=== PATIENT | male | born 1945 | race Two or more races ===

== ENCOUNTER 2017-10-08 10:52 | Inpatient (IN) | payer MEDICAID ==
[~2017-10-08] VITALS: Ht 157.5 cm; Wt 76.5 kg
[~2017-10-08 10:52] MED LIST: ASPI-231 PO; ATO40T PO; CALC667C PO; FURO80TA3 PO; GABA100C9 PO; SEVE800T8 PO; TRAZ50TA2 PO; VALS1TAB58 PO
[2017-10-08 12:24] LABS: Basophils # (auto) 0 uL; Eosinophils # (auto) 0 uL; Hemoglobin 13.6 g/dL (13.5-17.5); Monocytes # (auto) 0.3 uL; Nucleated Red Blood Cells % 0.2 %
[2017-10-08 12:26] LABS: Basophils % (auto) 0.7 % (0.0-2.0); Eosinophils % (auto) 0.5 % (0.0-7.0); Hematocrit 39.7 % (41.0-53.0); Lymphocytes # (auto) 0.2 uL; Lymphocytes % (auto) 5.7 % (10.0-50.0); Mean Corpuscular Hemoglobin 34.5 pg (28.0-32.0); Mean Corpuscular Hgb Conc. 34.3 g/dL (32.0-36.0); Mean Corpuscular Volume 100.7 fL (80.0-100.0); Monocytes % (auto) 9.5 % (0.0-12.0); Neutrophils # (auto) 2.8 uL; Neutrophils % (auto) 83.6 % (37.0-80.0); Platelet Count (auto) 131 10^3/uL (140-450); Red Blood Cells 3.94 10^6/uL (4.5-5.90); Red Cell Distribution Width 13.8 % (11.8-14.3); White Blood Cell 3.3 10^3/uL (4.4-10.8)
[2017-10-08 12:40] LABS: Albumin 3.7 g/dL (3.4-5.0); BUN/Creatinine Ratio 4.7; Bilirubin, Total 1.2 mg/dL (0.2-1.0); Calcium 8.7 mg/dL (8.5-10.1); Magnesium 2.4 mg/dL (1.6-2.6); Potassium 4.2 mmol/L (3.5-5.1); Total Protein 8.3 g/dL (6.4-8.2)
[2017-10-08] MEDS ORDERED: ACETAMINOPHEN 325 MG TAB PO ONE (13:05)
[2017-10-08] MEDS ORDERED: DEXTROSE (50%) 50ML SYRG IV PRN (14:00)
[2017-10-08] MEDS ORDERED: NITROGLYCERIN 0.4 MG SL TAB SL PRN (14:00)
[2017-10-08] MEDS ORDERED: VANCOMYCIN 500 MG in D5W 5% 100 ML IV ONE (14:00)
[2017-10-08] MEDS ORDERED: LORazepam 0.5 MG TAB PO PRN (14:00)
[2017-10-08] MEDS ORDERED: MORPHINE SULF INJ 2 MG/ML SYRINGE 1ML IV PRN ×2 (14:00→14:15)
[2017-10-08] MEDS ORDERED: HYDROcodone-ACET 5/325MG TAB PO PRN (14:00)
[2017-10-08] MEDS ORDERED: PIPERACILLIN-TAZOB 2.25GM 50 ML IV ONE (14:00)
[2017-10-08] MEDS ORDERED: PROMETHAZINE HCL 25 MG/ML 1ML IV PRN (14:00)
[2017-10-08] MEDS ORDERED: TEMAZEPAM 15 MG CAP PO PRN (14:00)
[2017-10-08] MEDS ORDERED: ENALAPRILAT 1.25 MG/ML-1ML VIAL IV PRN (14:00)
[2017-10-08] MEDS ORDERED: ACETAMINOPHEN 500 MG TAB PO PRN (14:00)
[2017-10-08] MEDS ORDERED: LACTULOSE 20Gm/30ML SOLN PO PRN (14:00)
[2017-10-08] MEDS ORDERED: PATIENTS OWN MEDICATION (Sevelamer Carbonate (Renvela) 1 TAB) PO SCH (14:00)
[2017-10-08] MEDS ORDERED: VANCOMYCIN PER PHARMACY 0 MG IV SCH (14:00)
[2017-10-08] MEDS: FAMOTIDINE (10MG/ML) 2ML VL IV SCH (15:05)
[2017-10-08] MEDS: ENOXAPARIN SOD 30 MG/0.3 ML SYRINGE SC SCH (15:06)
[2017-10-08] MEDS: SODIUM CHLOR 0.9% PF (SALINE LOCK) 10ML VIAL IV SCH ×2 (15:06→22:20)
[2017-10-08] MEDS: GABAPENTIN 100 MG CAP PO SCH ×2 (15:06→21:20)
[2017-10-08] MEDS ORDERED: VANCOMYCIN 1GM/250ML 250 ML IV ONE (15:30)
[2017-10-08 16:00] VITALS: BP 147/74
[2017-10-08 17:00] VITALS: BP 147/74
[2017-10-08] MEDS: InsuLIN REG 1unit/0.01ml Soln (100units/ml) SC SCH ×2 (17:00→22:00)
[2017-10-08] MEDS: ACCU-CHEK COMFORT CURVE STRIP VI SCH ×2 (17:16→22:20)
[2017-10-08] MEDS ORDERED: CLOP75TA41 PO (17:53)
[2017-10-08] MEDS ORDERED: NIFE30TA76 PO (17:53)
[2017-10-08] MEDS ORDERED: DIPH25CA6 PO (17:53)
[2017-10-08] MEDS ORDERED: POM (17:53)
[2017-10-08] MEDS ORDERED: AMIO200T33 PO (17:53)
[2017-10-08] MEDS ORDERED: CARV12.544 PO (17:53)
[2017-10-08] MEDS ORDERED: CETI10TA80 PO (17:53)
[2017-10-08] MEDS ORDERED: SEVE800T8 PO (17:58)
[2017-10-08] MEDS ORDERED: DOCU100T15 PO (17:58)
[2017-10-08] MEDS ORDERED: PANT40TA2 PO (17:58)
[2017-10-08] MEDS ORDERED: TRAZ50TA2 PO (17:58)
[2017-10-08] MEDS ORDERED: FURO40TA4 PO (17:58)
[2017-10-08] MEDS ORDERED: EPIN0.3I24 IJ (17:58)
[2017-10-08] MEDS ORDERED: HYDR10TA26 PO (17:58)
[2017-10-08] MEDS ORDERED: FAMO-12 PO (17:58)
[2017-10-08] MEDS ORDERED: PATIENTS OWN MEDICATION (Atorvastatin Calcium (Lipitor) 1 TAB) PO SCH (18:00)
[2017-10-08] MEDS ORDERED: ACET-1304 PO (18:00)
[2017-10-08] MEDS ORDERED: ISOS10TA2 PO (18:00)
[2017-10-08] MEDS: SEVELAMER 800 MG TAB PO SCH (18:12)
[2017-10-08] MEDS: CALCIUM ACETATE 667 MG CAP PO SCH (18:12)
[2017-10-08] MEDS: ATORVASTATIN 20 MG TAB PO SCH (21:19)
[2017-10-08] MEDS: traZODone HCL 50 MG TAB PO SCH (21:19)
[2017-10-08 22:23] VITALS: BP 146/66
[2017-10-09] MEDS: PIPERACILLIN-TAZOB 2.25GM 50 ML IV SCH ×2 (02:00→13:51)
[2017-10-09] MEDS: FAMOTIDINE (10MG/ML) 2ML VL IV SCH ×2 (02:35→13:51)
[2017-10-09 04:35] VITALS: BP 150/67
[2017-10-09 05:53] LABS: Hemoglobin 12.6 g/dL (13.5-17.5); Mean Corpuscular Volume 102.4 fL (80.0-100.0); Platelet Count (auto) 95 10^3/uL (140-450); White Blood Cell 2.2 10^3/uL (4.4-10.8)
[2017-10-09 05:55] LABS: Hematocrit 37.5 % (41.0-53.0); Mean Corpuscular Hemoglobin 34.4 pg (28.0-32.0); Mean Corpuscular Hgb Conc. 33.6 g/dL (32.0-36.0); Red Blood Cells 3.66 10^6/uL (4.5-5.90); Red Cell Distribution Width 14.6 % (11.8-14.3)
[2017-10-09 05:56] LABS: Band Neutrophils % (manual) 0; Basophils % (manual) 0 (0.0-2.0); Blast Cells 0; Eosinophils % (manual) 0 (0-7); Metamyelocytes % 0; Myelocytes % 0; Promyelocytes % 0; Reactive Lymphocytes 0
[2017-10-09] MEDS: ACCU-CHEK COMFORT CURVE STRIP VI SCH ×4 (06:13→21:25)
[2017-10-09] MEDS: InsuLIN REG 1unit/0.01ml Soln (100units/ml) SC SCH ×4 (06:13→21:25)
[2017-10-09] MEDS: GABAPENTIN 100 MG CAP PO SCH ×3 (06:13→21:25)
[2017-10-09] MEDS: SODIUM CHLOR 0.9% PF (SALINE LOCK) 10ML VIAL IV SCH ×3 (06:13→21:24)
[2017-10-09 06:56] LABS: Potassium 4.6 mmol/L (3.5-5.1)
[2017-10-09 06:57] LABS: BUN/Creatinine Ratio 5.6
[2017-10-09 06:58] LABS: Albumin 3.1 g/dL (3.4-5.0); Bilirubin, Total 1.1 mg/dL (0.2-1.0); Calcium 8.8 mg/dL (8.5-10.1); Total Protein 7.1 g/dL (6.4-8.2)
[2017-10-09 07:30] LABS: Lymphocytes % (manual) 19 (10.0-50.0); Monocytes % (manual) 17 (0-12)
[2017-10-09] MEDS: SEVELAMER 800 MG TAB PO SCH ×3 (08:24→17:43)
[2017-10-09] MEDS: CALCIUM ACETATE 667 MG CAP PO SCH ×3 (08:24→17:43)
[2017-10-09 08:46] VITALS: BP 141/81
[2017-10-09] MEDS: ASPirin-EC 81 mg tab PO SCH ×2 (09:57→09:59)
[2017-10-09] MEDS: ENOXAPARIN SOD 30 MG/0.3 ML SYRINGE SC SCH (09:57)
[2017-10-09] MEDS ORDERED: ASPirin 81 mg TAB PO SCH (10:00)
[2017-10-09] MEDS ORDERED: VANCOMYCIN 1GM/250ML 250 ML IV ONE (11:00)
[2017-10-09 12:51] VITALS: BP 185/94
[2017-10-09] MEDS: LABETALOL HCL 5 MG/ML ML 20ML VIAL IV PRN ×2 (12:54→17:43)
[2017-10-09 17:00] VITALS: BP 162/81
[2017-10-09] MEDS: traZODone HCL 50 MG TAB PO SCH (21:25)
[2017-10-09] MEDS: ATORVASTATIN 20 MG TAB PO SCH (21:25)
[2017-10-09 22:00] VITALS: BP 121/57
[2017-10-10] MEDS: FAMOTIDINE (10MG/ML) 2ML VL IV SCH ×2 (01:57→15:23)
[2017-10-10] MEDS: PIPERACILLIN-TAZOB 2.25GM 50 ML IV SCH ×2 (01:57→15:22)
[2017-10-10 05:34] VITALS: BP 113/47
[2017-10-10] MEDS: GABAPENTIN 100 MG CAP PO SCH ×3 (06:42→22:13)
[2017-10-10] MEDS: SODIUM CHLOR 0.9% PF (SALINE LOCK) 10ML VIAL IV SCH ×3 (06:42→22:13)
[2017-10-10] MEDS: InsuLIN REG 1unit/0.01ml Soln (100units/ml) SC SCH ×4 (06:43→22:00)
[2017-10-10] MEDS: ACCU-CHEK COMFORT CURVE STRIP VI SCH ×4 (06:43→22:14)
[2017-10-10 08:00] VITALS: BP 114/75
[2017-10-10 08:17] LABS: Hematocrit 35.7 % (41.0-53.0); Hemoglobin 11.9 g/dL (13.5-17.5); Mean Corpuscular Hemoglobin 33.7 pg (28.0-32.0); Mean Corpuscular Hgb Conc. 33.2 g/dL (32.0-36.0); Mean Corpuscular Volume 101.5 fL (80.0-100.0); Platelet Count (auto) 99 10^3/uL (140-450); Red Blood Cells 3.52 10^6/uL (4.5-5.90); Red Cell Distribution Width 14.4 % (11.8-14.3); White Blood Cell 2.7 10^3/uL (4.4-10.8)
[2017-10-10 08:21] LABS: BUN/Creatinine Ratio 6.6; Calcium 8.6 mg/dL (8.5-10.1); Potassium 4.6 mmol/L (3.5-5.1)
[2017-10-10 08:32] LABS: Band Neutrophils % (manual) 0; Basophils % (manual) 0 (0.0-2.0); Blast Cells 0; Metamyelocytes % 0; Myelocytes % 0; Promyelocytes % 0; Reactive Lymphocytes 0
[2017-10-10 08:47] LABS: Eosinophils % (manual) 1 (0-7); Lymphocytes % (manual) 37 (10.0-50.0); Monocytes % (manual) 5 (0-12)
[2017-10-10] MEDS: CALCIUM ACETATE 667 MG CAP PO SCH ×3 (08:50→17:57)
[2017-10-10] MEDS: SEVELAMER 800 MG TAB PO SCH ×3 (08:50→17:57)
[2017-10-10] MEDS: ENOXAPARIN SOD 30 MG/0.3 ML SYRINGE SC SCH (08:51)
[2017-10-10] MEDS: ASPirin-EC 81 mg tab PO SCH (08:51)
[2017-10-10 09:00] VITALS: BP 114/75
[2017-10-10 10:58] LABS: Folate (Folic Acid) 14.11 ng/mL (5.38-24)
[2017-10-10 15:28] VITALS: BP 132/67
[2017-10-10] MEDS: MICAFUNGIN SODIUM 100 MG in SODIUM CHL 0.9% 100 ML IV SCH (17:13)
[2017-10-10 17:51] VITALS: BP 160/62
[2017-10-10] MEDS ORDERED: LORazepam 2MG/ML-1ML VIAL IV PRN (21:00)
[2017-10-10 22:00] VITALS: BP 132/54
[2017-10-10] MEDS: traZODone HCL 50 MG TAB PO SCH (22:13)
[2017-10-10] MEDS: ATORVASTATIN 20 MG TAB PO SCH (22:13)
[2017-10-11] MEDS: FAMOTIDINE (10MG/ML) 2ML VL IV SCH ×2 (02:21→14:28)
[2017-10-11] MEDS: PIPERACILLIN-TAZOB 2.25GM 50 ML IV SCH ×2 (02:22→14:28)
[2017-10-11 05:00] VITALS: BP 105/47
[2017-10-11] MEDS: GABAPENTIN 100 MG CAP PO SCH ×2 (05:59→14:29)
[2017-10-11] MEDS: SODIUM CHLOR 0.9% PF (SALINE LOCK) 10ML VIAL IV SCH ×2 (05:59→14:28)
[2017-10-11] MEDS: ACCU-CHEK COMFORT CURVE STRIP VI SCH ×3 (06:20→17:50)
[2017-10-11] MEDS: InsuLIN REG 1unit/0.01ml Soln (100units/ml) SC SCH ×3 (06:20→17:51)
[2017-10-11 07:00] LABS: Hematocrit 34.5 % (41.0-53.0); Hemoglobin 11.6 g/dL (13.5-17.5); Mean Corpuscular Volume 101.6 fL (80.0-100.0)
[2017-10-11 07:02] LABS: Mean Corpuscular Hemoglobin 34.3 pg (28.0-32.0); Mean Corpuscular Hgb Conc. 33.7 g/dL (32.0-36.0); Platelet Count (auto) 89 10^3/uL (140-450); Red Cell Distribution Width 14.2 % (11.8-14.3); White Blood Cell 2.6 10^3/uL (4.4-10.8)
[2017-10-11 07:19] LABS: Band Neutrophils % (manual) 0; Basophils % (manual) 0 (0.0-2.0); Blast Cells 0; Metamyelocytes % 0; Myelocytes % 0; Promyelocytes % 0; Reactive Lymphocytes 0
[2017-10-11 07:22] LABS: BUN/Creatinine Ratio 7.5; Calcium 8.5 mg/dL (8.5-10.1); Potassium 4.9 mmol/L (3.5-5.1)
[2017-10-11] MEDS: SEVELAMER 800 MG TAB PO SCH ×3 (08:55→18:45)
[2017-10-11] MEDS: CALCIUM ACETATE 667 MG CAP PO SCH ×3 (08:55→18:45)
[2017-10-11] MEDS: ENOXAPARIN SOD 30 MG/0.3 ML SYRINGE SC SCH (08:55)
[2017-10-11] MEDS: ASPirin-EC 81 mg tab PO SCH (08:55)
[2017-10-11 09:18] VITALS: BP 127/77
[2017-10-11 11:43] VITALS: BP 141/73
[2017-10-11] MEDS ORDERED: SODIUM CHL 0.9% 1000 ML BAG XX ONE (12:00)
[2017-10-11 13:36] VITALS: BP 104/52
[2017-10-11 15:38] LABS: Eosinophils % (manual) 6 (0-7); Lymphocytes % (manual) 25 (10.0-50.0); Monocytes % (manual) 13 (0-12)
[2017-10-11] MEDS: MICAFUNGIN SODIUM 100 MG in SODIUM CHL 0.9% 100 ML IV SCH ×2 (16:53→17:00)
[2017-10-11 17:53] VITALS: BP 167/64
== END 2017-10-11 19:58 | disposition home or self-care (01) | DRG 720 ==
LOC: EDBD 10:52 → ER 10:52 → TELE 10:53 → TELE-EAST 15:49
PROVIDERS: ADMIT Internal Medicine; ATTEND Internal Medicine
PROC: 5A1D70Z Performance of Urinary Filtration, Intermittent, Less than 6 Hours Per Day (ICD-10-PCS; principal; 2017-10-11)
DX: A41.9 Sepsis, unspecified organism (principal); G93.41 Metabolic encephalopathy; I13.2 Hypertensive heart and chronic kidney disease with heart failure and with stage 5 chronic kidney disease, or end stage renal disease; I95.9 Hypotension, unspecified; N18.6 End stage renal disease; E11.22 Type 2 diabetes mellitus with diabetic chronic kidney disease; D69.6 Thrombocytopenia, unspecified; I50.9 Heart failure, unspecified; E66.01 Morbid (severe) obesity due to excess calories; D64.9 Anemia, unspecified; Z99.2 Dependence on renal dialysis; E11.319 Type 2 diabetes mellitus with unspecified diabetic retinopathy without macular edema; E78.5 Hyperlipidemia, unspecified; F32.9 Major depressive disorder, single episode, unspecified; G47.10 Hypersomnia, unspecified; G47.30 Sleep apnea, unspecified; H40.9 Unspecified glaucoma; H54.8 Legal blindness, as defined in USA; I25.10 Atherosclerotic heart disease of native coronary artery without angina pectoris; I25.2 Old myocardial infarction; Z79.82 Long term (current) use of aspirin; Z79.899 Other long term (current) drug therapy; Z82.49 Family history of ischemic heart disease and other diseases of the circulatory system; Z83.3 Family history of diabetes mellitus; Z68.30 Body mass index [BMI] 30.0-30.9, adult
CPT/HCPCS: 36415; 70551; 71045; 80048; 80053; 80061; 80202; 82550; 82607; 82746; 82962; 83036; 83605; 83735; 84443; 84484; 85007; 85025; 85027; 85652; 87040; 90935; 93005; 93306; 93886; 94660; 96374; 97163; J1642; J1815; J2248; J2543; J3490

== ENCOUNTER 2020-02-14 08:58 | Inpatient (IN) | payer MEDICAID ==
[2020-02-14] VITALS (40 sets, daily range): BP systolic 104–197; BP diastolic 44–92
[~2020-02-14] VITALS: Ht 157.5 cm; Wt 87.3 kg
[~2020-02-14 08:58] MED LIST changes: +ACET-1304 PO; +AMIO200T33 PO; -ASPI-231 PO; +CARV12.544 PO; +CETI10TA80 PO; +CLOP75TA41 PO; +DIPH25CA6 PO; +DOCU100T15 PO; +EPIN0.3I24 IJ; +EPINEPHrine HCL 1 MG/10 ML SYRG IV ONE; +FAMO-12 PO; +FURO40TA4 PO; -FURO80TA3 PO; +HYDR10TA26 PO; +ISOS10TA2 PO; +LIDOCAINE HCL 100 MG/5ML (2%) SYRG INJ IV ONE; +NIFE1TAB31 PO; +PANT40TA2 PO; +POM; +SODIUM BICARBONATE 8.4% INJ 50ML SYRINGE IV ONE; -VALS1TAB58 PO
--- NOTE | 2020-02-14 09:00 | NUR ---
Respiratory note: PT ARRIVED BY EMS WITH ROSC AND INTUBATED WITH SIZE 7.0 ETT SECURED AT 27 CM AT THE LIP. ETT CUFF WAS DEFLATED AND ETT WAS PULLED BACK TO 23 CM AT THE LIP, ETT CUFF WAS THEN INFLATED. ETT WAS THEN SECURED WITH RUKHSANA AT 23 CM AT THE LIP. END CAPNOGRAPHY HAD POSITIVE COLOR CHANGE. EQUAL CHEST RISE AND FALL. BREATH SOUNDS WERE HEARD THROUGH OUT ALL LUNG PINEDA, NOTHING WAS HEARD OVER THE STOMACH. CHEST XRAY WAS THEN ORDERED AND OBTAINED WITH ETT AT APPROPRIATE POSITION.
[2020-02-14] MEDS ORDERED: MIDAZOLAM DRIP 50 mg/50mL 50 ML IV ONE (09:17)
[2020-02-14] MEDS: MIDAZOLAM DRIP 50 mg/50mL 50 ML IV SCH ×4 (09:25→14:20)
[2020-02-14 09:39] LABS: Basophils # (auto) 0 10 ^3/uL (0-0.2); Basophils % (auto) 0.5 % (0.0-2.0); Hemoglobin 12.1 g/dL (13.5-17.5); Monocytes # (auto) 0.3 10 ^3/uL (0-1.3); Neutrophils % (auto) 64.1 % (37.0-80.0); Nucleated Red Blood Cells % 0.2 %
[2020-02-14 09:42] LABS: Eosinophils # (auto) 0.1 10 ^3/uL (0-0.8); Eosinophils % (auto) 1.2 % (0.0-7.0); Hematocrit 36.9 % (41.0-53.0); Lymphocytes # (auto) 1.6 10 ^3/uL (0.4-5.4); Lymphocytes % (auto) 28.2 % (10.0-50.0); Mean Corpuscular Hemoglobin 34.8 pg (28.0-32.0); Mean Corpuscular Hgb Conc. 32.7 g/dL (32.0-36.0); Mean Corpuscular Volume 106.4 fL (80.0-100.0); Neutrophils # (auto) 3.7 10 ^3/uL (1.6-8.6); Platelet Count (auto) 82 10^3/uL (140-450); Red Blood Cells 3.47 10^6/uL (4.5-5.90); White Blood Cell 5.7 10^3/uL (4.4-10.8)
[2020-02-14] MEDS ORDERED: NOREPINEPHRINE 8 MG/250ML KIT 250 ML IV ONE (09:45)
[2020-02-14] MEDS ORDERED: AMIODARONE 450mg/250ml AE 250 ML IV ONE (09:49)
[2020-02-14 09:55] LABS: INR 1.19 (0.9-1.15); Partial Thromboplastin Time 29.8 sec (23.64-32.05)
--- NOTE | 2020-02-14 09:56 | NUR ---
RT Transport Note: Patient transported to CT with RNE. PONCE. Patient transported to and from procedure on ventilator with previous ordered settings. Patient on satellite project site monitor with alarms set and audible, ambu-bag/mask connected to 02 tank. Patient returned to room with no adverse reaction noted. Transport completed without incident.
[2020-02-14 10:00] LABS: Albumin 2.5 g/dL (3.4-5.0); Calcium 8.1 mg/dL (8.5-10.1)
[2020-02-14 10:08] LABS: BUN/Creatinine Ratio 5.6; Bilirubin, Total 0.9 mg/dL (0.2-1.0)
[2020-02-14] MEDS: NOREPINEPHRINE 8 MG/250ML KIT 250 ML IV SCH (10:12)
[2020-02-14] MEDS ORDERED: AMIODARONE 450mg/250ml AE 250 ML IV SCH (10:22)
[2020-02-14 10:35] LABS: Lactic Acid w/Reflex 5.3 mmol/L (0.4-2.0)
[2020-02-14] MEDS ORDERED: DOPamine 1600MCG/ML D5W 250 ML IV ONE (10:38)
[2020-02-14] MEDS ORDERED: SODIUM BICARBONATE 8.4% INJ 50ML SYRINGE ONE (10:43)
[2020-02-14] MEDS ORDERED: PIPERACILLIN-TAZOB 3.375GM 100 ML IV ONE (10:45)
[2020-02-14] MEDS ORDERED: SODIUM BICARB IV ONE ×2 (10:45)
[2020-02-14] MEDS ORDERED: [UNRECOGNIZED DRUG - OTHER] IV ONE ×2 (10:45)
[2020-02-14] MEDS ORDERED: HEPARIN SODIUM (PORCINE) 5000 UNITS/ML 1ML VIAL IV ONE (11:30)
[2020-02-14] MEDS ORDERED: NITROGLYCERIN 0.4 MG SL TAB SL PRN (12:00)
--- NOTE | 2020-02-14 12:40 | NUR ---
RT Transport Note: Patient transported to ICU 109 with WILBERTO PONCE. Patient transported to and from procedure on ventilator with previous ordered settings. Patient on athletic monitor with alarms set and audible, ambu-bag/mask connected to 02 tank. Patient returned to room with no adverse reaction noted. Transport completed without incident.
--- NOTE | 2020-02-14 13:56 | NUR ---
TANK SETTER HELPER UPDATED NEW ORDERS IN PLACE.
--- NOTE | 2020-02-14 14:10 | NUR ---
Respiratory note: NEW VENT ORDERS AC 500 VT, 14 RR, PEEP 8, 100% FIO2. SETTINGS CHANGED ON VENT. ABG IN 1 HOUR.
[2020-02-14] MEDS ORDERED: POTASSIUM CHL 20MEQ/100ML 100 ML IV ONE ×2 (15:00→15:45)
[2020-02-14 15:23] LABS: Albumin 2.5 g/dL (3.4-5.0); Bilirubin, Direct 0.5 mg/dL (0-0.2); Calcium 8.1 mg/dL (8.5-10.1); Magnesium 1.9 mg/dL (1.6-2.6)
[2020-02-14 15:26] LABS: Bilirubin, Total 1.6 mg/dL (0.2-1.0); Phosphorus 2.1 mg/dL (2.5-4.90); Total Protein 6.2 g/dL (6.4-8.2)
--- NOTE | 2020-02-14 15:35 | NUR ---
RN IMCU DR. KIMBALL UPDATED ON PATIENTS STATUS. NEW ORDERS IN PLACE FOR TOTAL OF 40MEQ OF KCL IVP
[2020-02-14] MEDS: PIPERACILLIN-TAZOB 2.25GM 50 ML IV SCH ×3 (15:43→23:55)
[2020-02-14] MEDS ORDERED: DEXTROSE (50%) 50ML SYRG IV PRN (15:45)
[2020-02-14 15:46] LABS: Basophils # (auto) 0 10 ^3/uL (0-0.2); Eosinophils # (auto) 0 10 ^3/uL (0-0.8); Hemoglobin 12.6 g/dL (13.5-17.5); Lymphocytes # (auto) 0.3 10 ^3/uL (0.4-5.4); Monocytes # (auto) 0.4 10 ^3/uL (0-1.3); Monocytes % (auto) 7.4 % (0.0-12.0)
[2020-02-14 15:48] LABS: Basophils % (auto) 0.3 % (0.0-2.0); Hematocrit 37.2 % (41.0-53.0); Lymphocytes % (auto) 4.9 % (10.0-50.0); Mean Corpuscular Hemoglobin 35.1 pg (28.0-32.0); Mean Corpuscular Volume 103.5 fL (80.0-100.0); Neutrophils # (auto) 5.3 10 ^3/uL (1.6-8.6); Neutrophils % (auto) 87.4 % (37.0-80.0); Nucleated Red Blood Cells % 0.2 %; Red Cell Distribution Width 15.8 % (11.8-14.3); White Blood Cell 6.1 10^3/uL (4.4-10.8)
[2020-02-14 15:56] LABS: Platelet Count (auto) 96 10^3/uL (140-450)
--- NOTE | 2020-02-14 15:56 | NUR ---
TRANSMISSION SUPERVISOR DR. FREEMAN AWARE OF BRADYCARDIA WITH MULTIPLE PVCS AND OCCASIONAL JUNCTIONAL RYTHM. PATIENT PLACED ON EXT. PACER PADS. NEW ORDER IN PLACE.
--- NOTE | 2020-02-14 15:56 | NUR ---
FAMILY AT BEDSIDE DUE TO CRITICAL CONDITION. UPDATED FAMILY ON PLAN OF CARE. QUESTIONS AND CONCERNS ADDRESSED.
--- NOTE | 2020-02-14 16:00 | NUR ---
THERAPEUTIC HYPOTHERMIA HELD DUE TO BRADYCARDIA AND JUNCTIONAL RHYTHM. AWARE.
[2020-02-14 16:04] LABS: INR 1.22 (0.9-1.15); Partial Thromboplastin Time 27.5 sec (23.64-32.05)
[2020-02-14] MEDS: DOPamine 1600MCG/ML D5W 250 ML IV SCH (16:13)
[2020-02-14] MEDS ORDERED: MAGNESIUM SULFATE 1GM/100ML 100 ML IV ONE (16:15)
[2020-02-14] MEDS: ACCU-CHEK COMFORT CURVE STRIP VI SCH ×2 (16:25→22:41)
[2020-02-14] MEDS: InsuLIN REG 1unit/0.01ml Soln (100units/ml) SC SCH ×2 (16:27→22:41)
--- NOTE | 2020-02-14 16:27 | NUR ---
MEDIATION HELD PATIENTS BLOOD SUGAR 145. PT NPO, CRITICAL CONDITION. INSULIN HELD. AWARE. Addendum: 02/14/20 at 1704 by Sahra Fermin RN MEDICATION
--- NOTE | 2020-02-14 16:30 | NUR ---
Respiratory note: MESSAGE LEFT FOR DR. HOWELL REGARDING PT ABG ON NEW VENT SETTINGS.
--- NOTE | 2020-02-14 17:02 | NUR ---
CCO UPDATED ON FOLLOW UP BLOOD GAS NEW ORDERS IN PLACE. CXR IN A.M/ BLOOD GAS IN A.M.
--- NOTE | 2020-02-14 17:03 | NUR ---
UNABLE TO COLLECT U/A PATIENT ANURIC.
--- NOTE | 2020-02-14 18:03 | NUR ---
PAGED EKG DUE TO ABNORMAL RHYTHM. EKG READING INTRAVENTRICULAR BLOCK. PAGED TO NOTIFY, NEW ORDER FOR [facility]. BUILDING GUARD DEPUTY SHERIFF AWARE. [employer] TO BE CALLED IN FOR 1900.
[2020-02-14] MEDS ORDERED: LIDOCAINE 2%HCL (LOCAL ANESTH.) INJ 20ML MDV ONE (18:43)
[2020-02-14] MEDS ORDERED: IODIXANOL 320MG/ML 100ML BTL IV ONE ×2 (18:43→19:42)
[2020-02-14] MEDS ORDERED: IOHEXOL 350 MG/ML 100ML IJ ONE (18:43)
[2020-02-14] MEDS ORDERED: ANGIOMAX 250 MG VIAL IV ONE (18:56)
[2020-02-14] MEDS ORDERED: ADENOSINE 6 MG/2 ML INJ IV ONE (18:56)
[2020-02-14] MEDS ORDERED: ATROPINE SULF 1 MG/10ml SYR ONE (18:56)
[2020-02-14] MEDS ORDERED: SODIUM CHL 0.9% 0 ML ONE (18:56)
[2020-02-14] MEDS ORDERED: EPINEPHrine HCL 1 MG/10 ML SYRG ONE (18:56)
--- NOTE | 2020-02-14 19:00 | NUR ---
GEAR HOBBER SET UP OPERATOR: PATIENT TAKEN TO GEAR HOBBER SET UP OPERATOR. CONSENTS OBTAINED VIA PHONE WITH DAUGHTER, COLETTE VICKERS. PATIENT REMAINS ON PACER PADS. REPORT GIVEN TO NOC NURSE.
--- NOTE | 2020-02-14 19:00 | NUR ---
RN obtained report from day shift RN. Patient being taken to cathode builder.
--- NOTE | 2020-02-14 19:14 | NUR ---
Pt arrived to lab clerk without incident. pt on procedure table placed on monitor and zoll monitor. see mac report.
[2020-02-14] MEDS ORDERED: DIGO0.12 PO (19:45)
--- NOTE | 2020-02-14 20:37 | NUR ---
report given to PCN in ICU. manual hold in progress. pt remains on zoll and on monitor.
--- NOTE | 2020-02-14 21:05 | NUR ---
ARRIVED BACK TO ICU 109 WITH PT. PT PLACED BACK ON MARVIN VENT WITH SETTINGS ORDERED. PT TOLERATING WELL. PT TRANSPORTED WITHOUT ANY INCIDENTS. WILL CONTINUE TO MONITOR.
--- NOTE | 2020-02-14 21:05 | NUR ---
Patient back to ICU bed 9 from laborer petroleum refinery with no incident. Patient connected back to all monitors. RN noted patient's right groin central line partially out and bleeding. RN paged hospitalist and made him aware of the patient's condition and situation. PARAMJIT garrido came to patient bedside to reinsert central line. Central line was re-inserted with complete sterile technique and no incident. Patient tolerated intervention well. Central line flushing and pulling blood appropriately.
--- NOTE | 2020-02-14 21:09 | NUR ---
Pt taken to ICU without incident. No change to pt status. Groin visualized with PCN, groin soft benign.
--- NOTE | 2020-02-14 21:30 | NUR ---
Dr. Betsy Palafox at patient bedside. No new orders were received. Dr. Betsy Palafox spoke with patient's daughter who is POA and made her aware of the patient's condition and findings of the [facility]. RN also spoke with daughter after she spoke with Dr. Betsy Palafox and daughter was asking for permission to see patient d/t his poor prognosis. RN spoke with charge nurse and received approval for daughter and one more family member to see the patient. Daughter stated she will come tomorrow morning. RN reviewed patient's code status with daughter and the daughter verbalized she still wants patient to be a full code but does understand the severity of the patient's condition and his reason for being admitted into the ICU. All questions and concerns were answered.
--- NOTE | 2020-02-14 21:48 | NUR ---
RN received call from neurologist "Javy Moody" who was consulted by Javy Meyer. RN gave report to Javy Menard (Neurologist) on patient's condition and situation, along with [facility] findings. New orders were received from for a CT of the brain now and in the morning only if the patient is stable enough for transport to radiology. If patient is not stable enough for transport than hold off on the CT scans until the patient's condition permits.
[2020-02-14] MEDS ORDERED: PANTOPRAZOLE 40 MG/10 ML VIAL INJ IV SCH (22:00)
[2020-02-15] VITALS (101 sets, daily range): BP systolic 59–180; BP diastolic 13–103
--- NOTE | 2020-02-15 00:04 | NUR ---
RT adjusting patient's ETT and patient had tachycardia reaching 202. Patient immediately went back to a HR of 70's.
[2020-02-15 01:22] LABS: Basophils # (auto) 0 10 ^3/uL (0-0.2); Basophils % (auto) 0.2 % (0.0-2.0); Eosinophils # (auto) 0 10 ^3/uL (0-0.8); Eosinophils % (auto) 0.1 % (0.0-7.0); Hemoglobin 13.6 g/dL (13.5-17.5); Lymphocytes # (auto) 0.4 10 ^3/uL (0.4-5.4); Monocytes # (auto) 0.4 10 ^3/uL (0-1.3); Neutrophils # (auto) 5.8 10 ^3/uL (1.6-8.6); Neutrophils % (auto) 87.5 % (37.0-80.0); White Blood Cell 6.6 10^3/uL (4.4-10.8)
[2020-02-15 01:25] LABS: Hematocrit 39.8 % (41.0-53.0); Mean Corpuscular Hemoglobin 35.5 pg (28.0-32.0); Mean Corpuscular Hgb Conc. 34.3 g/dL (32.0-36.0); Mean Corpuscular Volume 103.5 fL (80.0-100.0); Monocytes % (auto) 6.2 % (0.0-12.0); Nucleated Red Blood Cells % 0.1 %; Platelet Count (auto) 109 10^3/uL (140-450); Red Blood Cells 3.85 10^6/uL (4.5-5.90); Red Cell Distribution Width 15.7 % (11.8-14.3)
[2020-02-15 01:28] LABS: Albumin 2.5 g/dL (3.4-5.0); BUN/Creatinine Ratio 6.1; Calcium 7.9 mg/dL (8.5-10.1); Potassium 3.9 mmol/L (3.5-5.1)
[2020-02-15 01:31] LABS: Bilirubin, Total 1.8 mg/dL (0.2-1.0); Total Protein 6.4 g/dL (6.4-8.2)
--- NOTE | 2020-02-15 02:30 | NUR ---
AM EKG performed. Strip placed in patient chart.
--- NOTE | 2020-02-15 05:30 | NUR ---
Neurologist "Javy Moody" at patient bedside rounding. MD made aware that patient has been to unstable throughout the night for transport for head CT. MD agreed that patient is to unstable at this time to be transported to CT. New orders received for an EEG and for Dr. Elias to read results.
[2020-02-15] MEDS: PIPERACILLIN-TAZOB 2.25GM 50 ML IV SCH ×3 (06:06→23:55)
[2020-02-15] MEDS: InsuLIN REG 1unit/0.01ml Soln (100units/ml) SC SCH ×4 (06:16→22:00)
[2020-02-15] MEDS: ACCU-CHEK COMFORT CURVE STRIP VI SCH ×4 (06:17→22:25)
--- NOTE | 2020-02-15 08:42 | NUR ---
PT REMAINS UNSTABLE FOR TRANSPORT TO CT AT THIS TIME.
[2020-02-15] MEDS: NOREPINEPHRINE 8 MG/250ML KIT 250 ML IV SCH (08:47)
--- NOTE | 2020-02-15 09:10 | NUR ---
RT NOTE: PT BP IS CRITICALLY LOW AT 58/42. NO PALPABLE PULSES FOUND FOR ABG DRAW. 2 ATTEMPTS MADE W/O SUCCESS. PT DOES RESPOND TO TOUCH AND TRIES TO PULL AWAY. WILL ATTEMPT AGAIN WHEN BP IS MORE STABLE. NO SIGNS OF RESPIRATORY DISTRESS. WILL CONTINUE TO MONITOR.
--- NOTE | 2020-02-15 09:12 | NUR ---
EEG in progress.
[2020-02-15] MEDS ORDERED: VANCOMYCIN PER PHARMACY 0 MG IV SCH (09:30)
--- NOTE | 2020-02-15 09:33 | NUR ---
RT NOTE: PER MD WALL ORDERS, RR DECREASED TO 12 AND PEEP DECREASED TO 8. ATTEMPT ANOTHER ABG IN 1HR. WILL CONTINUE TO MONITOR. Addendum: 02/15/20 at 0948 by OSIRIS MOYER, RT RT ALSO ORDERED FOR ET TUBE TO BE ADVANCED 2CM. PT CURRENTLY HAVING EEG DONE. WILL ADVANCE TUBE WHEN PROCEDURE IS FINISHED.
--- NOTE | 2020-02-15 09:50 | NUR ---
ELECTROENCEPHALOGRAM EEG COMPLETED AT BEDSIDE. PRIMARY RN JANETTE PICKENS.
[2020-02-15] MEDS: PANTOPRAZOLE 40 MG/10 ML VIAL INJ IV SCH (09:56)
[2020-02-15] MEDS ORDERED: VANCOMYCIN 1GM/250ML 250 ML IV ONE (11:00)
[2020-02-15] MEDS: MIDAZOLAM DRIP 50 mg/50mL 50 ML IV SCH (11:30)
--- NOTE | 2020-02-15 11:49 | NUR ---
Family member at bedside.
[2020-02-15] MEDS ORDERED: SODIUM BICARBONATE 8.4% INJ 50ML SYRINGE IV ONE (12:07)
[2020-02-15] MEDS ORDERED: EPINEPHrine HCL 1 MG/10 ML SYRG IV ONE (12:07)
[2020-02-15] MEDS ORDERED: PIPERACILLIN-TAZOB 0.75 GM in D5W 5% 50 ML IV SCH (12:45)
--- NOTE | 2020-02-15 15:08 | NUR ---
Nutrition Assessment Notes Please refer to link for full assessment notes. Est Energy needs: 7625-3131 kcals (20-23 kcal/kgBW) Est Protein needs: 90-99 gms/day (1.1-1.2 gm/kgBW) Will continue to monitor and reassess prn. Addendum: 02/15/20 at [address] Amended: Links added. Addendum: 02/16/20 at [address] Consult/Followup Note PLEASE NOTE ADDITIONAL RECOMMENDATION: Suggest a daily MVI with 500mg VitC BID Refer to full Assessment dated 02/15/20 for further details
--- NOTE | 2020-02-15 17:09 | NUR ---
Wound care nurse at bedside.
--- NOTE | 2020-02-15 17:10 | NUR ---
WOUND CARE NOTE: Wound care in to see patient per wound care request regarding intubation status and skin integrity issue that are noted upon admission. Bedside nurse took photograph of patient's wounds upon admission for reference. Patient is 74 years old male with admitting diagnosis of Respiratory Failure. Patient is resting in ICU bed in Rm. 109. Patient is intubated, sedated and mechanically ventilated. Patient appears to be in no pain using Jackson Kevin Faces Pain Scale. Skin assessment done with the assistance of patient's nurse, WILBERTO Goodman. 1x1.5cm intact, dry scabbed abrasion noted on patient's Rt anterolateral chest, distal to Rt nipple line, area is clean and dry, left open to air. 0.6x0.5cm, dry resolving skin tear noted on patient's L dorsolateral foot, staff applied protective dry dressing. His Rt distal march has puncture wound from previous IO site, staff applied Optifoam gentle dressing to protect. Non-blanchable redness (Stage 1 pressure injury) noted on patient's Rt and Lt sacrum and Rt lateral foot (7x2cm). Patient is receiving BID/PRN cleaning and application of Barrier to sacral, buttocks per MD order. Patient tolerated well, repositioned for comfort facing his Lt side, redistributed pressure points with pillows and elevated BLE on pillows. RECOMMENDATION: Nursing to continue with BID/PRN cleaning and application of Barrier cream to sacral, buttocks per MD order, Dietary consult, frequent turning and repositioning schedule as condition permits, redistribute pressure points with pillows, elevate heels on pillows, continue monitoring by wound care while patient is hospitalized. Addendum: 02/15/20 at 1815 by Leslie Negron RN Amended: Links added.
--- NOTE | 2020-02-15 19:00 | NUR ---
Opening shift note: Primary RN received patient from ER. Pt intubated ETT 7.0 / 25cm @LL, Vent settings: AC 12, TV 500, FIO2 70, PEEP 8, O2 SAT 100%, bilateral lungs coarse and diminished. Central line to right groin triple lumen, infusing versed @ 4, dopamine @ 5 and levo @ 8. NG tube to right nare connected to LIS and placement checked. Tobias catheter draining via gravity with yellow urine. Safety precautions in place. Will continue to monitor.
--- NOTE | 2020-02-15 19:55 | NUR ---
RT at bedside: RT decreased FIO2 to 60%. Patient saturating at 98%.
[2020-02-16] VITALS (102 sets, daily range): BP systolic 86–168; BP diastolic 22–109
--- NOTE | 2020-02-16 03:00 | NUR ---
Bed bath: Patient was only given a partial bed bath. During bed bath patient's heart rate dropped down to the high 30's and low 40's. Once RN stopped and patient settled, his heart rate increased back into the 80's. Patient is currently still to unstable for any aggressive movements.
[2020-02-16] MEDS: DOPamine 1600MCG/ML D5W 250 ML IV SCH ×3 (05:05→23:34)
[2020-02-16] MEDS: NOREPINEPHRINE 8 MG/250ML KIT 250 ML IV SCH (05:08)
[2020-02-16 06:06] LABS: Potassium 3.6 mmol/L (3.5-5.1)
[2020-02-16] MEDS: ACCU-CHEK COMFORT CURVE STRIP VI SCH ×4 (06:13→22:00)
[2020-02-16] MEDS: InsuLIN REG 1unit/0.01ml Soln (100units/ml) SC SCH ×4 (06:13→22:00)
[2020-02-16 06:21] LABS: Albumin 2.1 g/dL (3.4-5.0); BUN/Creatinine Ratio 7.3; Bilirubin, Total 1.5 mg/dL (0.2-1.0); Calcium 7.6 mg/dL (8.5-10.1); Total Protein 5.7 g/dL (6.4-8.2)
--- NOTE | 2020-02-16 06:32 | NUR ---
Respiratory note: RECEIVED PATIENT ON V7 V200 VENT ORALLY INTUBATED WITH A 7.0 ETT SECURED VIA RUKHSANA AT THE 23CM MARKING AT THE LIP, AND MECHANICALLY VENTILATED WITH THE CHARTED SETTINGS. SPO2 97%, LUNG SOUNDS CLEAR/DIM T/O, NO SECRETIONS WHEN SUCTIONED. SKIN IS WARM/DRY TO THE TOUCH AND IS INTACT NEAR RUKHSANA SITE. THERE IS A NGT IN THE RIGHT NARE. NO ADVANCE ACCESS LINES NOTED. NO NEW AM CXR TO ASSESS. PATIENT IS SEDATED ON VERSED DRIP AND IS SLIGHTLY RESPONSIVE TO TACTILE STIMULI, BUT SHOWS NO RESPONSE TO VERBAL STIMULI. HE IS RESTING COMFORTABLY AND TOLERATING VENT WELL, NO CHANGES MADE. VENT PLUGGED INTO RED OUTLET AND ALL ALARMS ARE SET AND AUDIBLE. WILL CONTINUE TO ASSESS PATIENT WELL VENTILATOR FUNCTION.
--- NOTE | 2020-02-16 06:47 | NUR ---
RN received call from dialysis nurse and informed RN she will be arriving in about an hour.
[2020-02-16] MEDS ORDERED: SODIUM CHL 0.9% 1000 ML BAG XX ONE (07:00)
--- NOTE | 2020-02-16 07:14 | NUR ---
REPORT RECEIVED FROM PATIENT SUPPORT TECH RN
[2020-02-16] MEDS ORDERED: DOPamine 1600MCG/ML D5W 250 ML IV SCH (08:00)
--- NOTE | 2020-02-16 08:50 | NUR ---
DIALYSIS NURSE AT BEDSIDE
--- NOTE | 2020-02-16 09:23 | NUR ---
SEDATION VACATION HELD AT THIS TIME. PATIENT TOO UNSTABLE Addendum: 02/16/20 at 0923 by Bryce Vu RN Amended: Links added.
[2020-02-16] MEDS: PANTOPRAZOLE 40 MG/10 ML VIAL INJ IV SCH (09:25)
--- NOTE | 2020-02-16 10:28 | NUR ---
[facility] [place]ATE [place] FOR A FEW MINUTES, SISTER AND NIECE
--- NOTE | 2020-02-16 10:46 | NUR ---
DR. YOO AT BEDSIDE
--- NOTE | 2020-02-16 11:05 | NUR ---
Respiratory note: PEEP DECREASED TO [address] THIS TIME PER [address] YOO'S ORDER. RN NOEMY AT BEDSIDE AND AWARE OF CHANGE.
--- NOTE | 2020-02-16 12:39 | NUR ---
PARTIAL LINEN CHANGE PERFORMED AT THIS TIME
[2020-02-16] MEDS: PIPERACILLIN-TAZOB 2.25GM 50 ML IV SCH (12:45)
[2020-02-16] MEDS: MIDAZOLAM DRIP 50 mg/50mL 50 ML IV SCH ×2 (12:46→18:47)
[2020-02-16] MEDS ORDERED: ROCURONIUM 10MG/ML 10ML VIAL IV ONE ×2 (14:45→15:15)
--- NOTE | 2020-02-16 15:11 | NUR ---
THORACENTESIS COMPLETE 1 LITER REMOVED AND SPECIMEN SENT TO LAB, STAT CXR ORDERED
[2020-02-16] MEDS: fentaNYL Drip 2500mCg/250mlNS 250 ML IV SCH (16:01)
--- NOTE | 2020-02-16 16:08 | NUR ---
FAMILY SISTER AND NIECE AT BEDSIDE TO VISIT
[2020-02-16] MEDS ORDERED: VANCOMYCIN 1GM/250ML 250 ML IV ONE (18:00)
--- NOTE | 2020-02-16 19:15 | NUR ---
Opening shift note RECEIVED REPORT FROM LACHO RN. PATIENT INTUBATED SEDATED ON VERSED AND FENT, TOLERATING VENTILATOR. NOT OPENING EYES OR FOLLOWING COMMANDS. SR 80'S WITH MULTIPLE PVC'S AND ST DEPRESSION, WITH DOPAMINE. SBP 120'S WITH NOREPINEPHRINE @6. RIGHT NGT TO LIS, PATENT. RIVERS PATENT. RIGHT FEMORAL TLC CENTRAL LINE CDI TRANSFUSING ALL MEDICATIONS. MULTIPLE SKIN ISSUES, FOR MORE INFORMATION SEE INTERVENTIONS. FOR GTTS AND THEIR TITRATIONS SEE IV SPREAD SHEET. PATIENT PLACED IN POSITION OF COMFORT.
[2020-02-17] VITALS (105 sets, daily range): BP systolic 86–164; BP diastolic 26–126
[2020-02-17] MEDS: MIDAZOLAM DRIP 50 mg/50mL 50 ML IV SCH ×4 (01:15→18:28)
[2020-02-17] MEDS: NOREPINEPHRINE 8 MG/250ML KIT 250 ML IV SCH (01:15)
--- NOTE | 2020-02-17 04:00 | NUR ---
COMPLETE BED BATH GIVEN. SKIN REASSESSED AND NO NEW BREAK DOWN NOTED. COMPLETE LINEN CHANGE DONE
[2020-02-17 04:25] LABS: Basophils # (auto) 0.1 10 ^3/uL (0-0.2); Eosinophils # (auto) 0.2 10 ^3/uL (0-0.8); Lymphocytes # (auto) 0.6 10 ^3/uL (0.4-5.4); Lymphocytes % (auto) 11.5 % (10.0-50.0); Mean Corpuscular Hgb Conc. 33.8 g/dL (32.0-36.0); Monocytes # (auto) 0.4 10 ^3/uL (0-1.3)
[2020-02-17 04:33] LABS: Eosinophils % (auto) 2.9 % (0.0-7.0); Hematocrit 37.7 % (41.0-53.0); Hemoglobin 12.7 g/dL (13.5-17.5); Mean Corpuscular Hemoglobin 34.9 pg (28.0-32.0); Mean Corpuscular Volume 103.3 fL (80.0-100.0); Monocytes % (auto) 7.6 % (0.0-12.0); Neutrophils # (auto) 4.3 10 ^3/uL (1.6-8.6); Platelet Count (auto) 96 10^3/uL (140-450); Red Blood Cells 3.65 10^6/uL (4.5-5.90); White Blood Cell 5.6 10^3/uL (4.4-10.8)
[2020-02-17 06:05] LABS: BUN/Creatinine Ratio 7.3; Calcium 7.5 mg/dL (8.5-10.1); Magnesium 1.9 mg/dL (1.6-2.6); Potassium 3.5 mmol/L (3.5-5.1)
[2020-02-17 06:08] LABS: Bilirubin, Total 1.4 mg/dL (0.2-1.0); Total Protein 5.7 g/dL (6.4-8.2)
[2020-02-17] MEDS: ACCU-CHEK COMFORT CURVE STRIP VI SCH ×4 (06:56→22:30)
[2020-02-17] MEDS: InsuLIN REG 1unit/0.01ml Soln (100units/ml) SC SCH ×4 (06:56→22:30)
[2020-02-17] MEDS ORDERED: PIPERACILLIN-TAZOB 2.25GM 50 ML IV SCH (07:30)
--- NOTE | 2020-02-17 09:00 | NUR ---
SEDATION VACATION HELD AT THIS TIME Addendum: 02/17/20 at 0935 by Bryce Vu RN Amended: Links added.
[2020-02-17] MEDS: PANTOPRAZOLE 40 MG/10 ML VIAL INJ IV SCH (09:30)
--- NOTE | 2020-02-17 11:02 | NUR ---
DR. YOO AT BEDSIDE
[2020-02-17] MEDS: PIPERACILLIN-TAZOB 2.25GM 50 ML IV SCH ×2 (11:26)
--- NOTE | 2020-02-17 11:40 | NUR ---
PATIENT TAKEN TO HEAD CT
--- NOTE | 2020-02-17 11:55 | NUR ---
RT Transport Note: Patient transported to Radiology with WILBERTO Holm and RN Meng. Patient transported on sewing machine repairer and transport vent connected to O2 tank with alarms set and audible. Patient returned to room and placed back on vent with previous settings, no adverse reaction noted. Transport completed without incident.
--- NOTE | 2020-02-17 11:57 | NUR ---
PATIENT BACK FROM CT PLACED ON ALL APPROPRIATE MONITORS
--- NOTE | 2020-02-17 12:42 | NUR ---
Betsy FREEMAN AT BEDSIDE
[2020-02-17] MEDS ORDERED: Nepro With Carb Steady 1 Liter Bottle GT SCH (13:15)
[2020-02-17] MEDS: DOPamine 1600MCG/ML D5W 250 ML IV SCH ×2 (14:38→18:28)
[2020-02-17] MEDS: fentaNYL Drip 2500mCg/250mlNS 250 ML IV SCH ×2 (15:46→17:25)
--- NOTE | 2020-02-17 15:46 | NUR ---
Nutrition Followup Note Wt 88.8kg Per RN pt to possibly start EN or TPN. If EN is indicated consider consider Nepro CS at 40 ml/hr. Est Energy needs: 7495-3199 kcals (20-23 kcal/kgBW) Est Protein needs: 90-99 gms/day (1.1-1.2 gm/kgBW) Will continue to monitor and reassess prn. Labs: BUN 36H, Creat 4.95H, Ca 7.5L, Alb 2.0L BM: 150 gastric stool 6/5 per RN doc Skin: BS 13 mod risk, full details per RN WC doc. PES: 1) Increased nutrient needs r/t pt with no PO intake aeb pt sedated, intubated with mech vent, NPO 2) Obesity r/t energy intake in excess of energy needs aeb 153% IBW and BMI of 33.1 kg/m2 3) Altered nutrition lab values r/t current/chronic medical condition aeb elev RFTs, low GFR, hyperglycemia, hypocalcemia, hypoalbuminemia, hyponatremia, hypochloremia Comments Will continue to closely monitor pertinent labs, PO intake and skin status prn. Will followup in 2-3 days 1) Continue to closely monitor pt NPO status 2) If pt remains NPO for the next 48 hours, consider supplemental nutrition support. If EN support is initiated, consider Nepro with Carb Steady 1.8 @ 40 ml/hr goal rate. 3) Gradually advance pt to oral Renal Standard diet when medically feasible and as tolerated 4) Continue current plan of care Expected Outcomes/Goals: Pt to receive nutrition support within 48 hours Pt to advance to oral diet Pt labs to improve
--- NOTE | 2020-02-17 18:33 | NUR ---
FAMILY UPDATED ON PATIENT STATUS. ALL QUESTIONS AND CONCERNS ADDRESSED AT THIS TIME
--- NOTE | 2020-02-17 19:15 | NUR ---
OPENING NOTE RECEIVED REPORT FROM LACHO LADD. PATIENT INTUBATED SEDATED ON VERSED AND FENT, TOLERATING VENTILATOR. NOT OPENING EYES OR FOLLOWING COMMANDS. SR 80'S WITH MULTIPLE PVC'S AND ST DEPRESSION, UNDERLYING PERFUSION BEATS 35-40'S, ON DOPAMINE. SBP 100'S/37. RIGHT NGT WITH FEEDING @30 WITH 0 RESIDUAL, PATENT. RIVERS PATENT. RIGHT FEMORAL TLC CENTRAL LINE CDI TRANSFUSING ALL MEDICATIONS. MULTIPLE SKIN ISSUES, FOR MORE INFORMATION SEE INTERVENTIONS. FOR GTTS AND THEIR TITRATIONS SEE IV SPREAD SHEET. PATIENT PLACED IN POSITION OF COMFORT.
[2020-02-18] VITALS (105 sets, daily range): BP systolic 83–154; BP diastolic 29–76
--- NOTE | 2020-02-18 | NUR ---
RESIDUAL CHECK PATIENT HAS RESIDUAL OF 200ML, HELD FEEDING AT THIS TIME.
[2020-02-18] MEDS: PIPERACILLIN-TAZOB 2.25GM 50 ML IV SCH ×3 (00:58→17:29)
[2020-02-18] MEDS: MIDAZOLAM DRIP 50 mg/50mL 50 ML IV SCH ×3 (03:37→07:42)
--- NOTE | 2020-02-18 03:38 | NUR ---
COMPLETE BED BATH GIVEN. SKIN REASSESSED AND NO NEW BREAK DOWN NOTED. COMPLETE LINEN CHANGE DONE
[2020-02-18 04:19] LABS: Basophils # (auto) 0.1 10 ^3/uL (0-0.2); Basophils % (auto) 1.1 % (0.0-2.0); Eosinophils # (auto) 0.2 10 ^3/uL (0-0.8); Lymphocytes # (auto) 0.5 10 ^3/uL (0.4-5.4); Monocytes # (auto) 0.4 10 ^3/uL (0-1.3); Red Cell Distribution Width 15.6 % (11.8-14.3)
[2020-02-18 04:21] LABS: Eosinophils % (auto) 4.2 % (0.0-7.0); Hematocrit 36.4 % (41.0-53.0); Hemoglobin 12.3 g/dL (13.5-17.5); Mean Corpuscular Hemoglobin 34.8 pg (28.0-32.0); Mean Corpuscular Hgb Conc. 33.9 g/dL (32.0-36.0); Mean Corpuscular Volume 102.5 fL (80.0-100.0); Monocytes % (auto) 8.2 % (0.0-12.0); Neutrophils # (auto) 3.9 10 ^3/uL (1.6-8.6); Neutrophils % (auto) 76.5 % (37.0-80.0); Nucleated Red Blood Cells % 0.1 %; Platelet Count (auto) 84 10^3/uL (140-450); Red Blood Cells 3.55 10^6/uL (4.5-5.90)
[2020-02-18 04:41] LABS: Potassium 3.6 mmol/L (3.5-5.1)
[2020-02-18 04:46] LABS: BUN/Creatinine Ratio 8.5; Calcium 7.6 mg/dL (8.5-10.1)
--- NOTE | 2020-02-18 05:30 | NUR ---
S/T CXR PATIENT ETT NOW AT 21 @ LIP, AUDIBLE GURGLING, PATIENT STATING >95% SPO2 ON BEDSIDE MONITOR. NOTIFIED RT ABOUT CHANGES
--- NOTE | 2020-02-18 06:15 | NUR ---
RESIDUAL CHECK TOTAL OF 60ML, RESUMED FEEDINGS AT 10ML/HR
[2020-02-18] MEDS: InsuLIN REG 1unit/0.01ml Soln (100units/ml) SC SCH ×4 (06:35→22:00)
[2020-02-18] MEDS: ACCU-CHEK COMFORT CURVE STRIP VI SCH ×4 (06:35→22:00)
--- NOTE | 2020-02-18 07:11 | NUR ---
REPORT RECEIVED FROM DESIGN ASSISTANT RN
--- NOTE | 2020-02-18 09:08 | NUR ---
SEDATION VACATION HELD AT THIS TIME. Addendum: 02/18/20 at 0909 by Bryce Vu RN Amended: Links added.
[2020-02-18] MEDS: PANTOPRAZOLE 40 MG/10 ML VIAL INJ IV SCH (09:29)
[2020-02-18] MEDS: DOPamine 1600MCG/ML D5W 250 ML IV SCH (09:30)
--- NOTE | 2020-02-18 09:34 | NUR ---
DR. HEARD AT BEDSIDE
[2020-02-18] MEDS: NOREPINEPHRINE 8 MG/250ML KIT 250 ML IV SCH (10:12)
--- NOTE | 2020-02-18 10:39 | NUR ---
FAMILY UPDATED ON PATIENT STATUS. ALL QUESTIONS AND CONCERNS ADDRESSED AT THIS TIME
--- NOTE | 2020-02-18 14:08 | NUR ---
DR. VAUGHN AT BEDSIDE
--- NOTE | 2020-02-18 19:15 | NUR ---
OPENING NOTE RECEIVED REPORT FROM LACHO LADD. PATIENT INTUBATED OFF SEDATION, TOLERATING VENTILATOR. OPENING EYES TO PAIN BUT NOT FOLLOWING COMMANDS. SR 80'S WITH MULTIPLE PVC'S AND ST DEPRESSION, UNDERLYING PERFUSION BEATS 35-40'S, ON DOPAMINE. SBP 130'S/37. RIGHT NGT CLAMPED, PATENT. RIVERS PATENT. RIGHT FEMORAL TLC CENTRAL LINE CDI TRANSFUSING ALL MEDICATIONS. MULTIPLE SKIN ISSUES, FOR MORE INFORMATION SEE INTERVENTIONS. FOR GTTS AND THEIR TITRATIONS SEE IV SPREAD SHEET. PATIENT PLACED IN POSITION OF COMFORT.
[2020-02-19] VITALS (102 sets, daily range): BP systolic 86–157; BP diastolic 39–72
[2020-02-19] MEDS: PIPERACILLIN-TAZOB 2.25GM 50 ML IV SCH ×3 (02:00→18:16)
[2020-02-19 04:19] LABS: Basophils # (auto) 0.1 10 ^3/uL (0-0.2); Basophils % (auto) 1.2 % (0.0-2.0); Eosinophils # (auto) 0.2 10 ^3/uL (0-0.8); Eosinophils % (auto) 4.7 % (0.0-7.0); Hematocrit 38.9 % (41.0-53.0); Lymphocytes # (auto) 0.5 10 ^3/uL (0.4-5.4); Lymphocytes % (auto) 11.5 % (10.0-50.0); Mean Corpuscular Hemoglobin 34.2 pg (28.0-32.0); Mean Corpuscular Hgb Conc. 33.4 g/dL (32.0-36.0); Mean Corpuscular Volume 102.5 fL (80.0-100.0); Monocytes # (auto) 0.4 10 ^3/uL (0-1.3); Monocytes % (auto) 9.5 % (0.0-12.0); Neutrophils # (auto) 3.2 10 ^3/uL (1.6-8.6); Neutrophils % (auto) 73.1 % (37.0-80.0); Nucleated Red Blood Cells % 0.1 %; Platelet Count (auto) 101 10^3/uL (140-450); Red Cell Distribution Width 15.3 % (11.8-14.3); White Blood Cell 4.4 10^3/uL (4.4-10.8)
[2020-02-19 04:44] LABS: Calcium 7.7 mg/dL (8.5-10.1); Potassium 3.7 mmol/L (3.5-5.1)
[2020-02-19 04:50] LABS: BUN/Creatinine Ratio 8.8; Bilirubin, Total 1.2 mg/dL (0.2-1.0); Total Protein 5.8 g/dL (6.4-8.2)
[2020-02-19] MEDS: ACCU-CHEK COMFORT CURVE STRIP VI SCH ×4 (06:51→21:45)
[2020-02-19] MEDS: InsuLIN REG 1unit/0.01ml Soln (100units/ml) SC SCH ×4 (06:51→21:45)
[2020-02-19] MEDS ORDERED: SODIUM CHL 0.9% 1000 ML BAG XX ONE (07:00)
--- NOTE | 2020-02-19 09:15 | NUR ---
DR Betsy YOO AT BEDSIDE, EXAMINED PATIENT, DR GAVE ORDER FOR CPAP TRIAL ONCE HEMODIALYSIS IS COMPLETED. CUSTOMER SUPPORT PROFESSIONAL AT BEDSIDE NOW.
[2020-02-19] MEDS ORDERED: HEPARIN 1,000 UNITS/ml 1ML VIAL IV ONE (09:30)
[2020-02-19] MEDS: MIDAZOLAM DRIP 50 mg/50mL 50 ML IV SCH (10:12)
--- NOTE | 2020-02-19 10:15 | NUR ---
WILL GIVE AM MEDICATIONS ORDERED AFTER HEMODIALYSIS
--- NOTE | 2020-02-19 11:00 | NUR ---
SPOKE WITH , UPDATED HER ON PLAN OF CARE AND ALL QUESTIONS/CONCERNS ADDRESSED
[2020-02-19] MEDS ORDERED: VANCOMYCIN 1GM/250ML 250 ML IV ONE (11:15)
--- NOTE | 2020-02-19 11:45 | NUR ---
Nutrition Followup Note Wt 88.9 kg Pt`s intubated sedated with no family but RN by bedside. per RN pt`s feeds on hold as pt was not tolerating with high residuals and would possible have CPAP today post HD. pt was on nephro carb steady. pt to have HD today Est Energy needs: 8261-6150 kcals (20-23 kcal/kgBW), Est Protein needs: 90-99 gms/day (1.1-1.2 gm/kgBW). Will continue to monitor and reassess prn. Labs: BUN 63 H, CREAT 7.12 HM, AKB 2.0 L, CA 7.7 L. BM: 100 gastric output 02/17 per RN doc Skin: BS 13 mod risk, full details per RN WC doc. PES: 1) Increased nutrient needs r/t pt with no PO intake aeb pt sedated, intubated with mech vent, NPO 2) Obesity r/t energy intake in excess of energy needs aeb 153% IBW and BMI of 33.1 kg/m2 3) Altered nutrition lab values r/t current/chronic medical condition aeb elev RFTs, low GFR, hyperglycemia, hypocalcemia, hypoalbuminemia, hyponatremia, hypochloremia Comments Will continue to closely monitor pertinent labs, PO intake and skin status prn. Will followup in 2-3 days Rec: 1) If pt remains NPO for the next 48 hours, consider supplemental nutrition support. If EN support is initiated, consider Nepro with Carb Steady 1.8 @ 40 ml/hr goal rate. 2) Gradually advance pt to oral Renal Standard diet when medically feasible and as tolerated. 3) Continue current plan of care
--- NOTE | 2020-02-19 13:00 | NUR ---
DIALYSIS COMPLETED, 1 LITER REMOVED
[2020-02-19] MEDS: DOPamine 1600MCG/ML D5W 250 ML IV SCH (13:01)
[2020-02-19] MEDS: PANTOPRAZOLE 40 MG/10 ML VIAL INJ IV SCH (13:01)
--- NOTE | 2020-02-19 13:15 | NUR ---
Respiratory note: CPAP TRIAL INITIATED HR 84,95%, RR 16, BP 128/75
--- NOTE | 2020-02-19 13:20 | NUR ---
Respiratory note: CPAP TRIAL TERMINATED. SPO2 DROPPED TO 88%, PATIENT IS HAVING A HARD TIME STAYING AWAKE. PATIENT IS BACK ON PREVIOUS SETTINGS.
--- NOTE | 2020-02-19 13:22 | NUR ---
DR Betsy YOO AWARE PATIENT LASTED ON CPAP FOR ONLY 5 MINS PER RT PATIENT DESATURATED TO 88% SP02 , TV 200'S AND NOT KEEPING EYES OPEN. DR PICKENS RT PLACED ON PREVIOUS VENT SETTINGS SIMV RATE OF 10. NO NEW ORDERS.
[2020-02-19] MEDS: NOREPINEPHRINE 8 MG/250ML KIT 250 ML IV SCH (13:29)
--- NOTE | 2020-02-19 17:08 | NUR ---
assessment Patient is a 74 year old male who is on vent in ICU. Per patients son in law Wu prior to admission patient lived home with him, his and his daughter. Per Wu patient needed assistance and family helps in the home. Per Wu patient has a fww and a wheelchair for home use. Patient is on service with [facility] on T TH SAT at 330am. Wu informed me patient was at dialysis and went down in cardiac arrest. CPR was done and patient brought to ER and intubated. I informed Wu that patients post discharge needs to be determined after extubation and prior to discharge. Wu verbalized understanding. Addendum: 02/19/20 at 1716 by Ora TREJO Amended: Links added.
[2020-02-19] MEDS: fentaNYL Drip 2500mCg/250mlNS 250 ML IV SCH (17:16)
--- NOTE | 2020-02-19 18:00 | NUR ---
UPDATED ON PLAN OF CARE OVER PHONE ALL QUESTIONS/CONCERNS ADDRESSED
--- NOTE | 2020-02-19 19:30 | NUR ---
Opening Shift Note Received pt on mechanical ventilator, off sedation. Pt awakens spontaneously and moves extremities. Does not follow commands. Bilateral mittens applied for pt safety. Full assessment done see interventions. Right NGT Clamped. Right femoral TLC. Admitted with multiple skin issues; see skin assessment interventions. Tobias catheter in place, secured below bladder draining to gravity. VSS. Bed locked in lowest position. All alarms on and audible. Pt in full view of RN.
[2020-02-20] VITALS (84 sets, daily range): BP systolic 82–168; BP diastolic 33–98
--- NOTE | 2020-02-20 00:15 | NUR ---
RT NOTE AT AROUND 2355 PT SELF EXTUBATED. AT 0011 PT WAS PLACED 8L SIMPLE MASK. HR 78, RR 23, BP 101/51, POX 97%. AT 0015 PT WAS CHANGED TO 8L/30% COOL AEROSOL. WILBERTO PANDYA AT BEDSIDE. HR 78, RR 15, BP 161/65, POX 97% ABG WILL BE DONE IN ABOUT AN HOUR Addendum: 02/21/20 at 0106 by Lela Garay RT Amended: Links added.
--- NOTE | 2020-02-20 00:18 | NUR ---
Ale Palafox at bedside.
[2020-02-20] MEDS: PIPERACILLIN-TAZOB 2.25GM 50 ML IV SCH ×3 (02:07→18:27)
[2020-02-20 04:16] LABS: Basophils # (auto) 0 10 ^3/uL (0-0.2); Basophils % (auto) 0.9 % (0.0-2.0); Eosinophils # (auto) 0.1 10 ^3/uL (0-0.8); Eosinophils % (auto) 3.3 % (0.0-7.0); Hematocrit 36.8 % (41.0-53.0); Hemoglobin 12.2 g/dL (13.5-17.5); Lymphocytes # (auto) 0.4 10 ^3/uL (0.4-5.4); Lymphocytes % (auto) 8.9 % (10.0-50.0); Mean Corpuscular Hemoglobin 34.5 pg (28.0-32.0); Mean Corpuscular Hgb Conc. 33.3 g/dL (32.0-36.0); Mean Corpuscular Volume 103.8 fL (80.0-100.0); Monocytes # (auto) 0.5 10 ^3/uL (0-1.3); Monocytes % (auto) 11.7 % (0.0-12.0); Neutrophils # (auto) 3.4 10 ^3/uL (1.6-8.6); Neutrophils % (auto) 75.2 % (37.0-80.0); Nucleated Red Blood Cells % 0.1 %; Platelet Count (auto) 117 10^3/uL (140-450); Red Blood Cells 3.54 10^6/uL (4.5-5.90); Red Cell Distribution Width 15.4 % (11.8-14.3); White Blood Cell 4.5 10^3/uL (4.4-10.8)
--- NOTE | 2020-02-20 04:38 | NUR ---
Elimination pt had moderate amount sized formed green BM. Cleansed pt and partial linen change provided. Pt did not tolerate very well. ECG changes noted of bigeminy.
[2020-02-20 04:39] LABS: BUN/Creatinine Ratio 7.2; Calcium 7.8 mg/dL (8.5-10.1); Potassium 3.7 mmol/L (3.5-5.1)
[2020-02-20] MEDS: ACCU-CHEK COMFORT CURVE STRIP VI SCH ×4 (06:05→22:00)
[2020-02-20] MEDS: InsuLIN REG 1unit/0.01ml Soln (100units/ml) SC SCH ×4 (06:05→22:00)
--- NOTE | 2020-02-20 08:21 | NUR ---
TITRATED FIO2 TO 35%
--- NOTE | 2020-02-20 08:30 | NUR ---
SKIN SKIN ASSESSMENT COMPLETED UPON FULL ASSESSMENT AND NEW SKIN ISSUE NOTED TO LEFT ABDOMEN LOOKS LIKE OPEN BLISTER THAT POPPED. LEFT BACK PRESSURE AREA ASSESSED WELL. PICTURE TAKEN OF BOTH SKIN ISSUES AND GEOPHYSICAL LABORATORY DIRECTOR AMANDA NOTIFIED.
--- NOTE | 2020-02-20 08:30 | NUR ---
WOUND CARE NOTE: NOTIFIED BY BEDSIDE NURSE OF TWO NEW SKIN INTEGRITY CONCERNS. PATIENT HAS DEVELOPED AN OPEN BLISTER TO LEFT ABDOMEN, AND AN EARLY INTACT DTI TO THE LEFT FLANK/BACK. WOUND PHOTOS TAKEN AT THIS TIME BY BEDSIDE NURSE PER PROTOCOL. OPEN BLISTER IS PARTIAL THICKNESS. PATIENT WOULD BENEFIT FROM EOD/PRN DRESSING CHANGES CONSISTING OF THERAHONEY/OPTIFOAM GENTLE DRESSING. PATIENT ALSO NOTED TO HAVE AN EARLY INTACT DTI TO THE LEFT FLANK. IT APPEARS THAT PATIENT MAY HAVE BEEN LAYING ON A CORD OR LINE, RENDERING NON BLANCHABLE DARK RED SKIN. RECOMMEND: EOD/PRN DRESSING CHANGE TO LEFT ABDOMEN WOUND, AVOID PRESSURE TO SKIN ON LEFT FLANK, REMOVING ANY LINES/CORDS AWAY FROM SKIN, CONTINUE WITH ALL OTHER WOUND CARE ORDERS PREVIOUSLY PRESCRIBED BY MD. WOUND CARE TEAM WILL CONTINUE TO MONITOR. Addendum: 02/20/20 at 1650 by Sue Espinal RN Amended: Links added.
--- NOTE | 2020-02-20 09:25 | NUR ---
DR Betsy MCCALL AT BEDSIDE, DR AWARE ABG RESULTS. DR ORDERED NEW VENTILATOR SETTINGS, RT AWARE. NO CPAP ORDER FOR TODAY DUE TO PATIENT MENTATION. AWARE PATIENT MOVES ALL EXTREMITIES AND AT TIMES FOLLOWS SOME COMMANDS BUT CANNOT KEEP EYES OPEN/STAY AWAKE. NEW ORDER RECEIVED FOR LOVENOX 30 MG SC BUT PHARMACY CHANGED PER PROTOCOL TO HEPARIN DUE TO PATIENT BEING ON DIALYSIS.
--- NOTE | 2020-02-20 09:50 | NUR ---
VENT SETTINGS CHANGED ORDERED PER DR. YOO: DECREASED RR TO 8, DECREASED VT TO 450. PT TOLERATING CHANGES WELL, NO ADVERSE REACTIONS NOTED. RN MADE AWARE OF CHANGES. WILL CONTINUE TO MONITOR.
[2020-02-20] MEDS: PANTOPRAZOLE 40 MG/10 ML VIAL INJ IV SCH (10:12)
[2020-02-20] MEDS: HEPARIN SODIUM (PORCINE) 5000 UNITS/ML 1ML VIAL SC SCH ×2 (10:13→23:30)
[2020-02-20] MEDS: DOPamine 1600MCG/ML D5W 250 ML IV SCH ×2 (10:24→19:44)
[2020-02-20] MEDS: MIDAZOLAM DRIP 50 mg/50mL 50 ML IV SCH (10:49)
[2020-02-20] MEDS: NOREPINEPHRINE 8 MG/250ML KIT 250 ML IV SCH (10:49)
--- NOTE | 2020-02-20 16:00 | NUR ---
SPOKE WITH DR VAUGHN, UPDATE GIVEN ON PATIENT STATUS.
--- NOTE | 2020-02-20 16:30 | NUR ---
CENTRAL LINE DSG TO RIGHT GROIN CHANGED USING ASEPTIC TECHNIQUE. TOLERATED WELL. LEFT EJ REMOVED AND MANUAL PRESSURE HELD.
--- NOTE | 2020-02-20 16:43 | NUR ---
TITRATED FIO2 TO 30%, PT TOLERATING CHANGES WELL, SPO2 95%
--- NOTE | 2020-02-20 18:53 | NUR ---
RT NOTE RECEIVED PT INTUBATED AND ON VENT V7 ON STATED SETTINGS ON HEATED WIRE CIRCUIT. VENT IS PLUGGED TO RED OUTLET. ALARMS ARE ON AND AUDIBLE TO NURSING STATION. AMBU BAG AT BEDSIDE AND CONNECTED TO O2 SOURCE. 8.0 ETT IS SECURED WITH ANCHORFAST AT 23 CM TO THE ORAL RIGHT. BILATERAL BS ARE CLEAR/DIMINSHED. RN KELLIE SUCTIONED PT WHEN CLEANING HIM. CIRCUIT TEMP 34.9 AND WATER IS ADEQUATE. CONT ORDERED. POX 96% Addendum: 02/20/20 at 2123 by Lela Graay RT Amended: Links added.
--- NOTE | 2020-02-20 19:30 | NUR ---
1800 ACCUCHECK 59, RECHECKED 64, DEXTROSE GIVEN ORDERED. RECHECKED 30 MINS AFTER DEXTROSE GIVEN AND 126. REPORT GIVEN TO MUMTAZ LADD.
[2020-02-20] MEDS: fentaNYL Drip 2500mCg/250mlNS 250 ML IV SCH (19:44)
--- NOTE | 2020-02-20 20:25 | NUR ---
RT NOTE ROUTINE VENT CHECK DONE. PT INTUBATED AND ON VENT V7 ON STATED SETTINGS ON HEATED WIRE CIRCUIT. VENT IS PLUGGED TO RED OUTLET. ALARMS ARE ON AND AUDIBLE TO NURSING STATION. AMBU BAG AT BEDSIDE AND CONNECTED TO O2 SOURCE. 8.0 ETT IS SECURED WITH ANCHORFAST AT 23 CM TO THE ORAL RIGHT. CIRCUIT TEMP 34.9 AND WATER IS ADEQUATE. CONT ORDERED. POX 96% Addendum: 02/20/20 at 2124 by Lela Garay RT Amended: Links added.
--- NOTE | 2020-02-20 22:18 | NUR ---
RT NOTE ROUTINE VENT CHECK DONE. PT INTUBATED AND ON VENT V7 ON STATED SETTINGS ON HEATED WIRE CIRCUIT. VENT IS PLUGGED TO RED OUTLET. ALARMS ARE ON AND AUDIBLE TO NURSING STATION. AMBU BAG AT BEDSIDE AND CONNECTED TO O2 SOURCE. 8.0 ETT IS SECURED WITH ANCHORFAST AT 23 CM TO THE ORAL LEFT. PT WAS SUCTIONED FOR SMALL RETURN. CIRCUIT TEMP 35.2 AND WATER IS ADEQUATE. CONT ORDERED. POX 97% Addendum: 02/20/20 at 2318 by Lela Garay RT Amended: Links added.
--- NOTE | 2020-02-20 23:50 | NUR ---
PT EXTUBATED SELF . MITTENS INTACT , OFF SEDATION X 2 DAYS . Michael NASH ECOSYSTEM ECOLOGY PROFESSOR IN ROOM , WILL PUT PT ON SIMPLE MIST MASK AND CLOSELY OBSERVE .
[2020-02-21] VITALS (20 sets, daily range): BP systolic 101–180; BP diastolic 51–81
--- NOTE | 2020-02-21 01:34 | NUR ---
PT TOLERATED MASK RR - 16 TO 18. SATS 06 TO 98 %. will continue to monitor .
[2020-02-21] MEDS: PIPERACILLIN-TAZOB 2.25GM 50 ML IV SCH ×3 (02:00→18:37)
[2020-02-21] MEDS: ACCU-CHEK COMFORT CURVE STRIP VI SCH ×4 (07:00→21:44)
[2020-02-21] MEDS: InsuLIN REG 1unit/0.01ml Soln (100units/ml) SC SCH ×4 (07:00→21:44)
--- NOTE | 2020-02-21 07:00 | NUR ---
DIALYSIS Dialysis nurse at bedside.
--- NOTE | 2020-02-21 07:45 | NUR ---
INITIAL CONTACT Report received from Pierre LADD, care assumed. Patient observed resting in bed, moving all extremities with equal strength. Afebrile. Patient responds to name and shaking. Patient speech garbled and unable to follow commands at this time. Pulses palpable bilaterally. Blood pressure remains stable off Dopamine drip. Right femoral TLC, dressing CDI. Left upper chest Remi catheter noted. Lungs coarse anteriorly. Patient on cool mist mask, unplanned extubation last night. Oxygen saturation 97% on 35% Fio2. No signs of distress or shortness of breath noted. See skin/wound assessment. SCD's on bilateral lower extremities. Bed locked in lowest position, alarms in place. Will continue to monitor.
--- NOTE | 2020-02-21 08:00 | NUR ---
ELIMINATION Patient had moderate green, soft bowel movement. Elsa-care, complete linen, and gown changer performed. Patient repositioned on side in bed. Bed locked in lowest position, alarms in place. Will continue to monitor.
[2020-02-21] MEDS: DOPamine 1600MCG/ML D5W 250 ML IV SCH (09:02)
--- NOTE | 2020-02-21 09:31 | NUR ---
FAMILY Patients Colleen called. Updated on plan of care and status. All questions and concerns addressed.
--- NOTE | 2020-02-21 09:35 | NUR ---
MD VISIT at bedside assessing patient. Orders obtained for CXR and med nebs. Orders placed.
[2020-02-21] MEDS: HEPARIN SODIUM (PORCINE) 5000 UNITS/ML 1ML VIAL SC SCH ×2 (10:00→21:36)
[2020-02-21] MEDS: NOREPINEPHRINE 8 MG/250ML KIT 250 ML IV SCH (10:12)
[2020-02-21] MEDS: MIDAZOLAM DRIP 50 mg/50mL 50 ML IV SCH (10:12)
--- NOTE | 2020-02-21 10:45 | NUR ---
DIALYSIS COMPLETE 2.5L removed.
[2020-02-21] MEDS: PANTOPRAZOLE 40 MG/10 ML VIAL INJ IV SCH (11:04)
[2020-02-21] MEDS: fentaNYL Drip 2500mCg/250mlNS 250 ML IV SCH (12:37)
[2020-02-21] MEDS: ALBUTEROL SULF 2.5 MG/0.5ML(0.5%) NEB SOLN NEB SCH (12:38)
[2020-02-21] MEDS: IPRATROPIUM BROM 0.5 MG/2.5ML INH SOL NEB SCH (12:38)
--- NOTE | 2020-02-21 14:41 | NUR ---
ELIMINATION Patient had small green, soft bowel movement. Elsa-care and partial linen change performed. Patient repositioned on side in bed. Patient able to tell me wifes name and his own name. Bed locked in lowest position, alarms in place. Will continue to monitor.
--- NOTE | 2020-02-21 15:09 | NUR ---
NEURO Patient is alert to self and birthday. Patient does not know where he is. Patient able to follow simple commands. No distress noted at this time.
--- NOTE | 2020-02-21 15:51 | NUR ---
Nutrition Followup Note Wt 72.7 kg Pt self extubated, breathing on his own, and off sedation with no family but RN by bedside. Per RN, will start pt`s feeding today with Nepro with Carb Steady 1.8 @ a low introduction rate most likely 10ml/hr to test pt tolerance. Pt to have HD today. Est Energy needs: 6471-1007 kcals (20-23 kcal/kgBW), Est Protein needs: 90-99 gms/day (1.1-1.2 gm/kgBW). Will continue to monitor and reassess prn. Labs: BUN 34 H, CREAT 5.41 H, CA 7.8 L, Alb 2.0 L BM: Pt had BM on 02/20 per RN doc Skin: BS 14 mod risk, full details per RN WC doc. PES: 1) Increased nutrient needs r/t pt with no PO intake aeb pt sedated, intubated with mech vent, NPO 2) Obesity r/t energy intake in excess of energy needs aeb 153% IBW and BMI of 33.1 kg/m2 3) Altered nutrition lab values r/t current/chronic medical condition aeb elev RFTs, low GFR, hyperglycemia, hypocalcemia, hypoalbuminemia, hyponatremia, hypochloremia Comments Will continue to closely monitor pertinent labs, PO intake and skin status prn. Will followup in 2-3 days Rec: 1) If pt remains NPO for the next 48 hours, consider supplemental nutrition support. If EN support is initiated, consider Nepro with Carb Steady 1.8 @ 40 ml/hr goal rate. 2) Gradually advance pt to oral Renal Standard diet when medically feasible and as tolerated. 3) Continue current plan of care
--- NOTE | 2020-02-21 16:50 | NUR ---
SWALLOW EVALUATED. PATIENT ABLE TO FOLLOW ONE STEP COMMANDS. PATIENT HAS NO TEETH OR DENTURES. PATIENT ABLE TO TOLERATE PUREE DIET TEXTURE WITH THIN LIQUIDS WITH NO OVERT SIGNS OR SYMPTOMS OF ASPIRATION. NURSING PRESENT.
--- NOTE | 2020-02-21 17:44 | NUR ---
MD UPDATE Spoke with regarding patient. MD aware patient has passed swallow evaluation but is still groggy and mentation is to self. Patient able to follow some simple commands. Vital signs stable but requires close monitoring. Orders placed.
--- NOTE | 2020-02-21 19:00 | NUR ---
Opening Shift Note Assumed care of patient, awake and alert to self at this time. No S/S of distress/SOB or pain. Instructed on POC and to call for assist PRN, will continue to monitor for changes Q1hr and PRN.
--- NOTE | 2020-02-21 19:50 | NUR ---
Patient transferred to room 270A with no s/s of discomfort or distress or complications.
--- NOTE | 2020-02-21 20:00 | NUR ---
Patient transferred from ICU s/p being extubated this AM. Patient is groggy upon arrival. Full assessment complete. SCD placed back onto patient. No signs or symptoms of SOB or pain at this time. Sitter at bedside taking vitals. Will continue to monitor patient.
--- NOTE | 2020-02-21 22:40 | NUR ---
Patient complains of generalized chest pain. Morphine given to relieve pain. Patient s/p CPR. HR and vitals are normal, with a BP of 144/54 and a heart rate of 78. Will continue to monitor patient.
[2020-02-21] MEDS: MORPHINE SULF INJ 2 MG/ML SYRINGE 1ML IV PRN (22:42)
[2020-02-22] MEDS: PIPERACILLIN-TAZOB 2.25GM 50 ML IV SCH ×3 (02:01→18:34)
--- NOTE | 2020-02-22 02:45 | NUR ---
Patient started sating in the 70s. Patient was lying below 30 degrees with his NC out of his nostril. Elevated patients HOB to above 30 degrees and put NC back into patients nostril and increased the O2 to 5L and had patient take breaths in with his nostrils. Patients O2 Sat came up to the 80s and then into the 90s, ending in the 98-100%. Will continue to keep patient in the upright position and monitor to make sure his NC is in his nose.
[2020-02-22 05:00] VITALS: BP 119/45
[2020-02-22] MEDS: ACCU-CHEK COMFORT CURVE STRIP VI SCH ×4 (06:15→22:53)
[2020-02-22] MEDS: InsuLIN REG 1unit/0.01ml Soln (100units/ml) SC SCH ×4 (06:15→22:00)
--- NOTE | 2020-02-22 07:24 | NUR ---
OPENING SHIFT NOTES Assumed care of patient from slot shift manager RN. Patient is alert and oriented to self, there is a sitter at bedside. No signs of distress noted, chest rise and fall is symmetric. Patient is on oxygen at 2L/min via nasal cannula, saturation is 93%. Patient has a bañuelos draining clear yellow urine to gravity, tubing is free of loops and kinks. Patient was updated on the plan of care but was unable to verbalize understanding. Bed is locked, in the lowest position, side rails up x3 and call light is in reach.
[2020-02-22] MEDS: ALBUTEROL SULF 2.5 MG/0.5ML(0.5%) NEB SOLN NEB SCH ×3 (07:37→18:53)
[2020-02-22] MEDS: IPRATROPIUM BROM 0.5 MG/2.5ML INH SOL NEB SCH ×3 (07:37→18:53)
[2020-02-22] MEDS: PANTOPRAZOLE 40 MG/10 ML VIAL INJ IV SCH (10:14)
[2020-02-22] MEDS: HEPARIN SODIUM (PORCINE) 5000 UNITS/ML 1ML VIAL SC SCH ×2 (10:26→22:52)
--- NOTE | 2020-02-22 11:40 | NUR ---
WOUND CARE NOTE: Wound care in to see patient for reevaluation of wounds. Patient has been extubated and now in [facility]/Telemetry unit. Patient is resting in bed in Rm. 270A. Patient's eyes are closed, respirations even and unlabored. Patient appears to be in no pain using Jackson Kevin Faces Pain Scale. His Hitesh score is 10. Skin assessment done with the help of nurse occupational therapy assistant at bedside. Patient's Rt lateral chest abrasion remain the same, clean and dry, left open to air. Dry resolving skin tear to his L dorsolateral foot continue to improve, clean and dry with brown thin scab, left open to air. Non-blanchable redness (Stage 1 pressure injury) to his Rt lateral foot remain intact and blanches slowly. Patient's sacral pressure injury remain intact, however skin is darker red. lukasz care given and applied Z Guard as ordered. Skin tear to his L abdomen (1x1.5cm) is also improving, red, clean and dry with pink periwound. L flank pressure injury (0.5x5.5cm) is improving as well, red with thn brown scab, pink periwound, clean and dry. Cleansed all wounds, photographed for reference and changed the dressing per MD order. Patient tolerated well, repositioned for comfort facing his Lt side, redistributed pressure points with pillows. WILBERTO Lawrence and nurse occupational therapy assistant a bedside. RECOMMENDATION: Continuation of all wound care orders prescribed by MD, continue with skin/wound plan of care, air mattress (ordered), continue monitoring by wound care while patient is hospitalized. Addendum: 02/22/20 at 1519 by Leslie Negron RN Amended: Links added.
--- NOTE | 2020-02-22 11:50 | NUR ---
US TECH AT BEDSIDE
[2020-02-22] MEDS: MORPHINE SULF INJ 2 MG/ML SYRINGE 1ML IV PRN (17:57)
--- NOTE | 2020-02-22 20:00 | NUR ---
Opening Shift Note Assumed care of patient. Awake and alert to self and place. No S/S of distress/SOB or pain. Sitter at bedside. Tobias is off the floor, patent and draining clear yellow urine. Instructed on POC. Call light within reach, bed locked, in lowest position, side rails up x2. Will continue to monitor for changes Q1hr and PRN.
--- NOTE | 2020-02-22 21:00 | NUR ---
Received call from patients Password verified. Updated on POC. Verbalized understanding
[2020-02-22 22:00] VITALS: BP 156/80
[2020-02-23] MEDS: IPRATROPIUM BROM 0.5 MG/2.5ML INH SOL NEB SCH ×4 (00:08→19:50)
[2020-02-23] MEDS: ALBUTEROL SULF 2.5 MG/0.5ML(0.5%) NEB SOLN NEB SCH ×4 (00:08→19:50)
[2020-02-23] MEDS: PIPERACILLIN-TAZOB 2.25GM 50 ML IV SCH ×3 (02:59→17:41)
[2020-02-23 05:00] VITALS: BP 139/64
[2020-02-23] MEDS: ACCU-CHEK COMFORT CURVE STRIP VI SCH ×4 (06:03→22:53)
[2020-02-23] MEDS: InsuLIN REG 1unit/0.01ml Soln (100units/ml) SC SCH ×4 (06:03→22:53)
[2020-02-23] MEDS ORDERED: SODIUM CHL 0.9% 1000 ML BAG XX ONE (07:00)
[2020-02-23 08:00] VITALS: BP 146/92
[2020-02-23 09:00] VITALS: BP 156/81
--- NOTE | 2020-02-23 10:00 | NUR ---
medication held at this time, pt is having hemodialysis, will give it after hemodialysis.
--- NOTE | 2020-02-23 11:00 | NUR ---
HEMODIALYSIS DONE WITH 3L OUTPUT, BP 140/71MMHG, HR 81BPM.
[2020-02-23] MEDS: PANTOPRAZOLE 40 MG/10 ML VIAL INJ IV SCH (12:57)
[2020-02-23 13:00] VITALS: BP 134/56
[2020-02-23] MEDS: HEPARIN SODIUM (PORCINE) 5000 UNITS/ML 1ML VIAL SC SCH ×2 (13:01→22:39)
--- NOTE | 2020-02-23 13:58 | NUR ---
Nutrition Followup Note Wt 72.7 kg Pt`s extubated, sleeping with no family by bedside. pt is currently on pureed diet with adequate PO of 100% x 1 per RN doc. diet recently advanced. pt to have HD today Est Energy needs: 1606-3480 kcals (20-23 kcal/kgBW), Est Protein needs: 90-99 gms/day (1.1-1.2 gm/kgBW). Will continue to monitor and reassess prn. Labs: BUN 39 H, CREAT 5.41 H BM: Pt had BM on 02/20 per RN doc Skin: BS 14 mod risk, full details per RN WC doc. PES: 1) Increased nutrient needs r/t pt with no PO intake aeb pt sedated, intubated with mech vent, NPO 2) Obesity r/t energy intake in excess of energy needs aeb 153% IBW and BMI of 33.1 kg/m2 3) Altered nutrition lab values r/t current/chronic medical condition aeb elev RFTs, low GFR, hyperglycemia, hypocalcemia, hypoalbuminemia, hyponatremia, hypochloremia Comments Will continue to closely monitor pertinent labs, PO intake and skin status prn. Will followup in 3-5 days Rec: 1) Consider CCHO 60 gm renal std pureed diet. 2) refer to CDE on DC. 3) Continue current plan of care
[2020-02-23 17:07] VITALS: BP 143/45
[2020-02-23] MEDS ORDERED: VANCOMYCIN 500 MG in D5W 5% 100 ML IV ONE (18:00)
--- NOTE | 2020-02-23 20:00 | NUR ---
Opening Shift Note Assumed care of patient. Awake and alert x2 to self and place. No S/S of distress/SOB or pain. Sitter at bedside. Continuous pulse ox in place, pt O2 at 94% on 3L NC. Tobias bag off the floor, patent and draining clear straw colored urine. Bed locked, in lowest position, call light within reach, side rails up x2. Will continue to monitor for changes Q1hr and PRN.
[2020-02-23 21:10] VITALS: BP 154/43
--- NOTE | 2020-02-23 22:00 | NUR ---
Received call from pts Password verified. Updated on POC. Verbalized understanding. Will continue with care
[2020-02-24] MEDS: IPRATROPIUM BROM 0.5 MG/2.5ML INH SOL NEB SCH ×4 (00:49→17:57)
[2020-02-24] MEDS: ALBUTEROL SULF 2.5 MG/0.5ML(0.5%) NEB SOLN NEB SCH ×4 (00:49→17:57)
[2020-02-24] MEDS: PIPERACILLIN-TAZOB 2.25GM 50 ML IV SCH ×3 (01:50→17:36)
[2020-02-24 04:48] VITALS: BP 143/72
[2020-02-24] MEDS: InsuLIN REG 1unit/0.01ml Soln (100units/ml) SC SCH ×4 (06:45→22:00)
[2020-02-24] MEDS: ACCU-CHEK COMFORT CURVE STRIP VI SCH ×4 (06:45→22:14)
--- NOTE | 2020-02-24 07:09 | NUR ---
Closing shift note Endorsed care to day shift RN. No S/S of distress, SOB or pain noted.
--- NOTE | 2020-02-24 07:40 | NUR ---
Opening Note Assumed pt care from KENNETH RN. Pt is a/ox2-3; pt is able to respond to name and able to answer questions, mild periods of confusion noted. Pt is currently sitting upright in bed eating breakfast with no complaints. Sitter is present at bedside for safety reasons. Pt is currently on 3L via NC. Tobias is present, draining to gravity and free of kinks. Central line to pt's R groin present. Safety measures maintained with call light within reach, bed in lowest position and side rails up. Will continue to monitor.
[2020-02-24 09:00] VITALS: BP 134/69
[2020-02-24] MEDS: PANTOPRAZOLE 40 MG/10 ML VIAL INJ IV SCH (09:16)
[2020-02-24] MEDS: HEPARIN SODIUM (PORCINE) 5000 UNITS/ML 1ML VIAL SC SCH ×2 (09:17→22:22)
--- NOTE | 2020-02-24 13:20 | NUR ---
Dr Palafox at Bedside MD to see pt. stated that the POC is a defib implantation once pt is more stable. New orders to obtain consent. discussed POC with pt's , Colleen. also requests that Vanco 1gm be administered before procedure. Will continue to monitor. Addendum: 02/24/20 at 1452 by RENE ARAUJO RN RN Left message with . Pt's family members are requesting further information regarding day of implantation. Left message for additional information Addendum: 02/24/20 at 1512 by RENE ARAUJO RN RN Procedure to be completed on February ay [address] Betsy Palafox. Will notify family.
[2020-02-24 15:10] VITALS: BP 134/69
[2020-02-24 22:00] VITALS: BP 165/77
--- NOTE | 2020-02-24 23:12 | NUR ---
Chhaya Palafox for elevated blood pressure. BP is 185/78, there are no prn blood pressure medications available.
--- NOTE | 2020-02-24 23:15 | NUR ---
Dr. Palafox called back, new order received for Hydralazine 10 mg IVP prn SBP>150 and Hydralazine 25 mg PO QID( hold if SBP<120). See Order history and eMAR, will carry out.
[2020-02-24] MEDS: hydrALAZINE HCL 25 MG TAB PO SCH (23:48)
[2020-02-25] MEDS: ALBUTEROL SULF 2.5 MG/0.5ML(0.5%) NEB SOLN NEB SCH ×4 (00:01→19:11)
[2020-02-25] MEDS: IPRATROPIUM BROM 0.5 MG/2.5ML INH SOL NEB SCH ×4 (00:01→19:11)
[2020-02-25] MEDS: PIPERACILLIN-TAZOB 2.25GM 50 ML IV SCH ×3 (01:55→17:38)
[2020-02-25] MEDS: hydrALAZINE HCL 20 MG/ML VL IV PRN ×2 (01:55→17:19)
[2020-02-25 03:06] VITALS: BP 145/66
[2020-02-25 05:00] VITALS: BP 147/70
[2020-02-25] MEDS: hydrALAZINE HCL 25 MG TAB PO SCH ×3 (05:45→17:38)
[2020-02-25] MEDS: InsuLIN REG 1unit/0.01ml Soln (100units/ml) SC SCH ×4 (06:26→21:43)
[2020-02-25] MEDS: ACCU-CHEK COMFORT CURVE STRIP VI SCH ×4 (06:27→21:43)
--- NOTE | 2020-02-25 07:10 | NUR ---
Opening Shift Note: Assumed care of patient, awake and alert x 2. No S/S of distress/SOB or pain. Bed in lowest locked position, side rails up x 2, call light within reach. Sitter at bedside for patient safety. Patient instructed on POC and to call for assist PRN, will continue to monitor for changes Q1hr and PRN. Addendum: 02/26/20 at 0211 by RAMANDEEP ARAUJO RN RN Wrong time correct time 1909
--- NOTE | 2020-02-25 07:26 | NUR ---
Opening Note Assumed pt care from NOC RN. Pt is a/ox3-4; mild period of confusion noted. Pt is currently sitting upright in bed at 3L via NC with no s/s of distress or SOB. Discussed POC with pt. Sitter is present in room. Tobias is present, draining to gravity and free of kinks. Safety measures maintained with call light within reach, bed in lowest position and side rails up. Will continue to monitor.
[2020-02-25 09:00] VITALS: BP 126/65
[2020-02-25] MEDS: PANTOPRAZOLE 40 MG/10 ML VIAL INJ IV SCH (09:09)
[2020-02-25] MEDS: HEPARIN SODIUM (PORCINE) 5000 UNITS/ML 1ML VIAL SC SCH ×2 (09:10→21:30)
[2020-02-25] MEDS ORDERED: VANCOMYCIN 500 MG in D5W 5% 100 ML IV ONE (12:00)
[2020-02-25 12:30] VITALS: BP 157/75
--- NOTE | 2020-02-25 12:45 | NUR ---
Central Line Dressing Change Minimal blood tinged drainage noted to pt's dressing. Dressing changed and secured. Will continue to monitor.
[2020-02-25 17:00] VITALS: BP 153/81
[2020-02-25 22:00] VITALS: BP 166/75
[2020-02-26] MEDS: ALBUTEROL SULF 2.5 MG/0.5ML(0.5%) NEB SOLN NEB SCH ×4 (00:07→18:58)
[2020-02-26] MEDS: IPRATROPIUM BROM 0.5 MG/2.5ML INH SOL NEB SCH ×4 (00:07→18:58)
[2020-02-26] MEDS: hydrALAZINE HCL 25 MG TAB PO SCH ×4 (00:18→18:00)
--- NOTE | 2020-02-26 00:45 | NUR ---
DR. LUTHER: Dr. Betsy Palafox at bedside. Discussed POC with patient.
[2020-02-26] MEDS: PIPERACILLIN-TAZOB 2.25GM 50 ML IV SCH ×3 (02:08→18:00)
--- NOTE | 2020-02-26 03:04 | NUR ---
CLOSING NOTE: Patient asleep in bed. No S/S of distress at this time. Sitter at bedside for patient safety. Care endorsed.
--- NOTE | 2020-02-26 04:00 | NUR ---
Opening Shift Note Assumed care of patient, asleep, even unlabored respirations. No S/S of distress/SOB or pain. Bed in lowest/locked position, bed rails upx2, call light within reach. Sitter at bedside for safety. Will continue to monitor for changes Q1hr and PRN.
[2020-02-26 05:00] VITALS: BP 129/64
[2020-02-26] MEDS: InsuLIN REG 1unit/0.01ml Soln (100units/ml) SC SCH ×4 (06:28→22:00)
[2020-02-26] MEDS: ACCU-CHEK COMFORT CURVE STRIP VI SCH ×3 (06:29→17:20)
[2020-02-26] MEDS ORDERED: SODIUM CHL 0.9% 1000 ML BAG XX ONE (07:00)
[2020-02-26 08:29] VITALS: BP 127/69
--- NOTE | 2020-02-26 08:50 | NUR ---
Central Line Dressing Change Noted moisture in dressing. Line flushes and blood return received. Dressing changed and secured. Will continue to monitor.
--- NOTE | 2020-02-26 09:00 | NUR ---
SACRUM DRESSING CHANGED TO SACRUM
[2020-02-26] MEDS: PANTOPRAZOLE 40 MG/10 ML VIAL INJ IV SCH (09:39)
[2020-02-26] MEDS: HEPARIN SODIUM (PORCINE) 5000 UNITS/ML 1ML VIAL SC SCH ×2 (09:39→22:00)
--- NOTE | 2020-02-26 09:45 | NUR ---
MD ROUNDS DR Betsy FREEMAN AT BEDSIDE DISCUSSING POC WITH PATIENT, THIS RN, & TITLE INSURANCE SALES REPRESENTATIVE FOR INTERPRETATION. NO NEW ORDERS AT THIS TIME. WILL CONTINUE TO MONITOR
[2020-02-26 12:22] VITALS: BP 129/64
--- NOTE | 2020-02-26 15:27 | NUR ---
PAGED PAGED DR VAUGHN RE: PATIENT DIALYSIS ORDERS FOR TODAY 02/25. AWAITING RETURN CALL
--- NOTE | 2020-02-26 17:00 | NUR ---
PLANT OPERATIONS VICE PRESIDENT RECEIVED PHONE CALL FROM PLANT OPERATIONS VICE PRESIDENT. PATIENT WILL BE RECEIVING DIALYSIS TODAY. WILL CONTINUE TO MONITOR
[2020-02-26 17:08] VITALS: BP 155/76
--- NOTE | 2020-02-26 17:45 | NUR ---
DIALYSIS INGREDIENT SCALER HELPER AT BEDSIDE
[2020-02-26] MEDS ORDERED: VANCOMYCIN 500 MG in D5W 5% 100 ML IV ONE (18:00)
[2020-02-26 22:00] VITALS: BP 111/55
[2020-02-27] VITALS (7 sets, daily range): BP systolic 116–152; BP diastolic 58–73
[2020-02-27] MEDS: ACCU-CHEK COMFORT CURVE STRIP VI SCH ×5 (00:30→22:00)
[2020-02-27] MEDS: PIPERACILLIN-TAZOB 2.25GM 50 ML IV SCH ×3 (02:52→17:44)
[2020-02-27] MEDS: hydrALAZINE HCL 25 MG TAB PO SCH ×4 (06:00→17:44)
[2020-02-27] MEDS: InsuLIN REG 1unit/0.01ml Soln (100units/ml) SC SCH ×4 (06:27→22:00)
[2020-02-27 07:46] LABS: Basophils # (auto) 0.1 10 ^3/uL (0-0.2); Hemoglobin 11.5 g/dL (13.5-17.5); Monocytes # (auto) 0.5 10 ^3/uL (0-1.3); Neutrophils # (auto) 3.1 10 ^3/uL (1.6-8.6)
[2020-02-27 07:48] LABS: Basophils % (auto) 2.8 % (0.0-2.0); Eosinophils # (auto) 0.2 10 ^3/uL (0-0.8); Eosinophils % (auto) 3.7 % (0.0-7.0); Hematocrit 34.2 % (41.0-53.0); Lymphocytes # (auto) 0.7 10 ^3/uL (0.4-5.4); Lymphocytes % (auto) 15.1 % (10.0-50.0); Mean Corpuscular Hemoglobin 34.8 pg (28.0-32.0); Mean Corpuscular Hgb Conc. 33.7 g/dL (32.0-36.0); Mean Corpuscular Volume 103.4 fL (80.0-100.0); Monocytes % (auto) 10.1 % (0.0-12.0); Neutrophils % (auto) 68.3 % (37.0-80.0); Platelet Count (auto) 130 10^3/uL (140-450); Red Blood Cells 3.31 10^6/uL (4.5-5.90); Red Cell Distribution Width 15.4 % (11.8-14.3); White Blood Cell 4.5 10^3/uL (4.4-10.8)
--- NOTE | 2020-02-27 07:50 | NUR ---
Opening Note Assumed pt care from NEIL RN. Pt is a/ox3-4; mild periods of confusion; sitter present at bedside. Pt is currently sitting at edge of bed eating breakfast with no complaints at this time. Discussed POC with pt. Tobias present, free of kinks and draining to gravity. Safety measures maintained with call light within reach, bed in lowest position and side rails up. Will continue to monitor for changes.
--- NOTE | 2020-02-27 07:51 | NUR ---
Dr Palafox at Bedside MD to see pt. Discussed POC with pt. Plans for scheduled defibrillator tomorrow, 02/27. requests that we hold Heparin after 1900 today. No new orders at this time.
[2020-02-27 07:58] LABS: INR 1.08 (0.9-1.15); Partial Thromboplastin Time 26.2 sec (23.64-32.05)
[2020-02-27 08:01] LABS: Potassium 4.1 mmol/L (3.5-5.1)
[2020-02-27 08:08] LABS: Albumin 2.4 g/dL (3.4-5.0); BUN/Creatinine Ratio 3.9; Bilirubin, Total 0.7 mg/dL (0.2-1.0); Calcium 8.6 mg/dL (8.5-10.1); Total Protein 6.6 g/dL (6.4-8.2)
[2020-02-27] MEDS: PANTOPRAZOLE 40 MG/10 ML VIAL INJ IV SCH (09:26)
[2020-02-27] MEDS: HEPARIN SODIUM (PORCINE) 5000 UNITS/ML 1ML VIAL SC SCH ×2 (09:27→22:00)
--- NOTE | 2020-02-27 11:45 | NUR ---
Nutrition Followup Note Wt 87.0 kg Pt`s sleeping with no family by bedside when rounded this morning. Pt is currently on pureed diet with fair appetite aeb 50% PO intake per RN doc. Per sitter he is doing well, no distress or complaints. Will continue to closely monitor pertinent labs, PO intake and skin status prn. Will followup in 3-5 days Est Energy needs: 8728-3278 kcals (20-23 kcal/kgBW), Est Protein needs: 90-99 gms/day (1.1-1.2 gm/kgBW). Will continue to monitor and reassess prn. Labs: BUN 21 H, CREAT 5.44 H, GFR 11 L, Alb 2.4 L BM: Pt had 2 BM on 02/26 per RN doc Skin: BS 16 mod risk, full details per RN WC doc. PES: 1) Increased nutrient needs r/t pt with no PO intake aeb pt sedated, intubated with mech vent, NPO 2) Obesity r/t energy intake in excess of energy needs aeb 153% IBW and BMI of 33.1 kg/m2 3) Altered nutrition lab values r/t current/chronic medical condition aeb elev RFTs, low GFR, hyperglycemia, hypocalcemia, hypoalbuminemia, hyponatremia, hypochloremia Comments Will continue to closely monitor pertinent labs, PO intake and skin status prn. Will followup in 3-5 days Rec: 1) Consider CCHO 60 gm renal std pureed diet. 2) refer to CDE on DC. 3) Continue current plan of care
[2020-02-27] MEDS: ALBUTEROL SULF 2.5 MG/0.5ML(0.5%) NEB SOLN NEB SCH ×3 (12:26→18:53)
[2020-02-27] MEDS: IPRATROPIUM BROM 0.5 MG/2.5ML INH SOL NEB SCH ×4 (12:26→18:53)
--- NOTE | 2020-02-27 14:31 | NUR ---
CENTRAL LINE DRESSING CHANGE CENTRAL LINE DRESSING CHANGE USING STERILE TECHNIQUE. PATIENT TOLERATED WELL. ASYMPTOMATIC NO SIGNS OF INFECTION.
--- NOTE | 2020-02-27 16:29 | NUR ---
EKG Complete for Pre-Op EKG complete for Pre-Op clearance. EKG is placed in front of hard chart.
[2020-02-27] MEDS: hydrALAZINE HCL 20 MG/ML VL IV PRN (16:45)
--- NOTE | 2020-02-27 19:01 | NUR ---
Respiratory note: AT BEDSIDE FOR MED NADIR CASTANEDA.
--- NOTE | 2020-02-27 19:25 | NUR ---
Opening Note Received report from shaye Baumann RN. Assumed care of patient, awake and alert. No S/S of distress/SOB or pain. Sitter at bedside. Instructed on POC and to call for assist PRN, will continue to monitor for changes Q1hr and PRN. Bed placed in lowest position, bed alarm turned on and call light within reach.
--- NOTE | 2020-02-27 21:30 | NUR ---
Caridad from tele monitoring called and reports a run of v tach for patient. Check patient, resting in bed and no distress noted. Fixed electrodes and patient's reading is back to sinus rhythm at 105 bpm. Patient is scheduled to have AICD placement on 02/28/20 at 0800 with Ale Gurrola Will monitor.
--- NOTE | 2020-02-28 | NUR ---
Advise patient and reminded sitter that patient is NPO after midnight. Patient verbalized understanding.
[2020-02-28] MEDS: IPRATROPIUM BROM 0.5 MG/2.5ML INH SOL NEB SCH ×4 (00:52→18:28)
[2020-02-28] MEDS: ALBUTEROL SULF 2.5 MG/0.5ML(0.5%) NEB SOLN NEB SCH ×4 (00:52→18:28)
--- NOTE | 2020-02-28 00:56 | NUR ---
Respiratory note: AT BEDSIDE FOR MED NADIR CASTANEDA.
[2020-02-28] MEDS: hydrALAZINE HCL 25 MG TAB PO SCH ×5 (01:46→23:47)
[2020-02-28] MEDS: PIPERACILLIN-TAZOB 2.25GM 50 ML IV SCH ×4 (01:47→17:30)
[2020-02-28 04:43] VITALS: BP_SYST 125
[2020-02-28] MEDS ORDERED: VANCOMYCIN 1GM/250ML 250 ML IV ONE ×2 (05:00→08:06)
--- NOTE | 2020-02-28 05:30 | NUR ---
Chlorhexidine wipes administered
[2020-02-28 06:24] LABS: Basophils # (auto) 0.1 10 ^3/uL (0-0.2); Basophils % (auto) 2.1 % (0.0-2.0); Lymphocytes # (auto) 0.7 10 ^3/uL (0.4-5.4); Monocytes # (auto) 0.5 10 ^3/uL (0-1.3); Neutrophils # (auto) 3.3 10 ^3/uL (1.6-8.6); Red Cell Distribution Width 15.2 % (11.8-14.3); White Blood Cell 4.7 10^3/uL (4.4-10.8)
[2020-02-28 06:27] LABS: Eosinophils # (auto) 0.1 10 ^3/uL (0-0.8); Eosinophils % (auto) 3.2 % (0.0-7.0); Hematocrit 33.2 % (41.0-53.0); Hemoglobin 11.2 g/dL (13.5-17.5); Lymphocytes % (auto) 15.2 % (10.0-50.0); Mean Corpuscular Hgb Conc. 33.8 g/dL (32.0-36.0); Mean Corpuscular Volume 103.5 fL (80.0-100.0); Monocytes % (auto) 9.8 % (0.0-12.0); Neutrophils % (auto) 69.7 % (37.0-80.0); Platelet Count (auto) 147 10^3/uL (140-450); Red Blood Cells 3.21 10^6/uL (4.5-5.90)
[2020-02-28 06:44] LABS: Potassium 4.3 mmol/L (3.5-5.1)
[2020-02-28] MEDS: InsuLIN REG 1unit/0.01ml Soln (100units/ml) SC SCH ×4 (06:44→21:22)
[2020-02-28] MEDS: ACCU-CHEK COMFORT CURVE STRIP VI SCH ×4 (06:45→21:20)
[2020-02-28] MEDS ORDERED: SODIUM CHL 0.9% 1000 ML BAG XX ONE (07:00)
--- NOTE | 2020-02-28 07:02 | NUR ---
PT TAKEN TO [employer] COACH FOR ICD PLACEMENT. [facility] TX GIVEN PRIOR TO TRANSPORT.
[2020-02-28] MEDS ORDERED: IOHEXOL 350 MG/ML 100ML IJ ONE (07:16)
[2020-02-28] MEDS ORDERED: LIDOCAINE 2%HCL (LOCAL ANESTH.) INJ 20ML MDV ONE (07:16)
[2020-02-28 07:17] LABS: BUN/Creatinine Ratio 4.1; Calcium 8.6 mg/dL (8.5-10.1)
--- NOTE | 2020-02-28 08:00 | NUR ---
Patient at cardiovascular lab director
[2020-02-28] MEDS ORDERED: MIDAZOLAM HCL 1MG/1ML-2 ML VIAL ONE (08:06)
[2020-02-28] MEDS ORDERED: fentaNYL CITRATE 100 MCG/2 ML VL ONE (08:06)
[2020-02-28] MEDS ORDERED: VANCOMYCIN HCL 1000 MG VL ONE (08:08)
--- NOTE | 2020-02-28 09:00 | NUR ---
Patient back to his room ICD placement cancelled. Patient is for transfer to higher level of care per orders from Dr. Ale Palafox.
[2020-02-28 09:14] VITALS: BP 214/81
[2020-02-28] MEDS: HEPARIN SODIUM (PORCINE) 5000 UNITS/ML 1ML VIAL SC SCH ×2 (10:00→21:20)
--- NOTE | 2020-02-28 10:00 | NUR ---
Per Betsy Nielson patient is for transfer to [facility], Dr. Silvino Briones was accepting. Discharge #[id number]. Patient's is aware of transfer.
[2020-02-28] MEDS: PANTOPRAZOLE 40 MG/10 ML VIAL INJ IV SCH (10:21)
--- NOTE | 2020-02-28 11:30 | NUR ---
PT BEING DIALYZED. PHOTO CHECKER INFORMED ME THAT PT DIDN'T HAVE PROCEDURE DONE IN CLIENT CONSULTANT DUE DIALYSIS FISTULA BEING IN THE WAY OF WHERE PROCEDURE WAS TO BE PERFORMED. PT GIVEN MEDNEB TX, WITHOUT ANY ADVERSE EFFECTS NOTED. SPO2 98% ON 3L NC, HR 105, RR 18, BS DIMINISHED. SITTER AT BEDSIDE, WELL POT ROOM SUPERVISOR. WILL CONTINUE TO MONITOR PT.
--- NOTE | 2020-02-28 11:30 | NUR ---
Dialysis done 2.7 liters out.
[2020-02-28 14:00] VITALS: BP 144/68
--- NOTE | 2020-02-28 15:36 | NUR ---
I called [facility] [phone] and spoke with Julian regarding the need to transfer to higher level of care. I let him know that our MD had spoke with Dr. Silvino Briones and he has accepted the patient. I provided Julian with contact information for Dr. Palafox as well as the nurse's station. I faxed order/clinical information to [facility] at [phone]. I also faxed transfer order to [facility]. I received a call from Julian at the [facility] letting me know that he reached out to Dr. Betsy Palafox and was told that he already spoke with Dr. Silvino Briones-Julian asked that I called Dr. Palafox and explain that they have a process that they have to follow for all transfers that includes them speaking with the transferring physician. Per Julian he asked that I have Dr. Betsy Palafox call their physician line at [phone]. I called Dr. Betsy Palafox and he told me that he already spoke with Dr. Silvino Briones who accepted the patient and that he didn't have time to be talking to other people-he stated he was going to call Dr. Silvino Briones right now.
--- NOTE | 2020-02-28 16:32 | NUR ---
I spoke with Maria Alejandra Masters-[facility] Swimming Pool Plasterer Helper-she provided me with authorization number for [facility] [id number], and auth for [facility] is [id number]. I called [facility] ([phone]) and spoke with Asael, placed them on will call pending transfer to [facility]. I spoke with Julian at the [facility] Transfer [facility], provided him with [facility] authorization number as well as contact information for Maria Alejandra at [facility]. Per Julian, he did speak with Dr. Silvino Briones-screw machine tool setter who is accepting the patient but patient needs an accepting supervisor area as well. Per Julian, Dr. Betsy Palafox needs to call their MD priority line [phone] to speak with the transfer center who will connect him to the supervisor area. I called Dr. Betsy Palafox again and there was no answer-per Julian when he tried Dr. Palafox a second time it went straight to his office. I spoke with nurse Kerry to update her on the status of the transfer-I provided her with the phone number that Dr. Palafox needs to call ([phone]) to get accepting supervisor area. I let her know that until that happens, patient won't be going anywhere.
[2020-02-28 16:37] VITALS: BP 141/60
--- NOTE | 2020-02-28 19:00 | NUR ---
Opening Shift Note Assumed care of patient, patient sleeping and lethargic, sitter at bedside. No S/S of distress/SOB or pain. Patient danish speaker. Patient in the lowest possible position with bed rails up x2 and call light within reach. Instructed on POC and to call for assist PRN, will continue to monitor for changes Q1hr and PRN.
[2020-02-28 20:00] VITALS: BP 140/82
[2020-02-28 21:58] VITALS: BP 147/67
[2020-02-29] MEDS: ALBUTEROL SULF 2.5 MG/0.5ML(0.5%) NEB SOLN NEB SCH ×4 (00:48→18:33)
[2020-02-29] MEDS: IPRATROPIUM BROM 0.5 MG/2.5ML INH SOL NEB SCH ×4 (00:48→18:33)
[2020-02-29] MEDS: PIPERACILLIN-TAZOB 2.25GM 50 ML IV SCH ×3 (02:09→17:39)
[2020-02-29 05:00] VITALS: BP 124/56
[2020-02-29] MEDS: hydrALAZINE HCL 25 MG TAB PO SCH ×4 (05:49→23:39)
[2020-02-29] MEDS: ACCU-CHEK COMFORT CURVE STRIP VI SCH ×4 (06:15→21:44)
[2020-02-29] MEDS: InsuLIN REG 1unit/0.01ml Soln (100units/ml) SC SCH ×4 (06:16→21:44)
--- NOTE | 2020-02-29 07:20 | NUR ---
Opening Note Assumed pt care from Mariajose RN. Pt is a/ox4; Pt is currently sitting upright in bed eating breakfast with no complaints. Sitter is present at bedside for safety reasons. Pt is currently on 3L via NC. Tobias is present, draining to gravity and free of kinks. Central line to pt's R groin present. Safety measures maintained with call light within reach, bed in lowest position and side rails up. Will continue to monitor.
--- NOTE | 2020-02-29 08:42 | NUR ---
I called [facility] [phone] and spoke with Florencia, she said they are still waiting for Dr. Betsy Palafox to call their MD line [phone] to answer some questions so they can find an accepting information resource consultant. I called Dr. Betsy Palafox [phone]-phone call went to his office-message stated they open at 0930.
[2020-02-29 09:00] VITALS: BP 133/67
[2020-02-29] MEDS: HEPARIN SODIUM (PORCINE) 5000 UNITS/ML 1ML VIAL SC SCH ×2 (10:21→21:44)
[2020-02-29] MEDS: PANTOPRAZOLE 40 MG/10 ML VIAL INJ IV SCH (10:22)
[2020-02-29 12:33] VITALS: BP 127/65
--- NOTE | 2020-02-29 15:08 | NUR ---
Received call from Julian, from [place] transfer office, per Julian they are still waiting for Dr. Betsy Palafox to call their MD line [phone] to answer some questions so they can find an accepting model maker plaster. I called Dr. Betsy Palafox [phone]-phone call went to voicemail. Unable to leave message due to mailbox being full.
--- NOTE | 2020-02-29 16:00 | NUR ---
Received call from Anali Cox (Case Management), per Anali Palafox spoke to Dr. Silvino Briones whom cannot perform surgery until 03/06 Dr. Palafox now plans to DC patient to [facility] until surgery date. Will await orders.
--- NOTE | 2020-02-29 16:05 | NUR ---
Patient states he does not want to transfer to SNF. Will notify MD Palafox.
--- NOTE | 2020-02-29 16:20 | NUR ---
Call out to Dr. Palafox to notify of patients refusal. Per MD, he will make a call to Colleen, and will notify me with an update.
--- NOTE | 2020-02-29 16:25 | NUR ---
I received a call from Julian at [facility] letting me know that Dr. Silvino Briones can not perform the surgery until . I called Dr. Betsy Palafox and made him aware-he said to send patient to [facility]. Per patient's nurse patient does not want to go to SNF until surgery can be done, he wants to go home.
[2020-02-29 17:00] VITALS: BP 130/68
--- NOTE | 2020-02-29 18:00 | NUR ---
RECEIVED CALL FROM DANNI WITH [facility], DANNI STATES DR SUDEEP RODRIGUEZ WANTS PATIENT AT [facility] ON TUESDAY OR TUESDAY. WILL INFORM
--- NOTE | 2020-02-29 19:04 | NUR ---
DR Betsy FREEMAN AT BED SIDE DISCUSSING POC WITH PATIENT, INCLUDING PLAN TO DISCHARGE PATIENT HOME UNTIL SURGERY DATE ON TUESDAY SINCE PATIENT AND FAMILY ALREADY REFUSED [facility]. PATIENT STATES HE DOES NOT FEEL SAFE GOING BACK HOME, AND IS ALSO REFUSING DISCHARGE TO HOME.
--- NOTE | 2020-02-29 19:11 | NUR ---
MD FREEMAN AWARE OF WHEN [facility] NEEDS PATIENT ADMITTED. WHICH IS TUESDAY OR TUESDAY.
--- NOTE | 2020-02-29 19:33 | NUR ---
Family called. , Colleen called to discuss patient plan of care. denied sending patient to [facility]. stated that she did not feel comfortable sending the patient to a place in which is new care for him. She feels it would be best and safer to keep him with care that understands his specific needs. Asked if he would be able to go home with her until he is needed at [facility] on Tuesday or Tuesday. stated that she also did not feel comfortable with that decision because she is the only one that is home to care for him and she does not feel that she is adequate to care fo the patients needs if he were to go home. Patients felt that at this moment she does not want her to be moved. Discussed with her the reasons and how it would help, but the denied any transfer at this moment. MD to be made aware of wifes' request at this time. Will continue to monitor patient.
--- NOTE | 2020-02-29 19:38 | NUR ---
Opening Shift Note Assumed care of patient, awake and alert. Sitter at bedside, patient is a yakut speaker. Patient the lowest possible position with call light within reach. No S/S of distress/SOB or pain. Instructed on POC and to call for assist PRN, will continue to monitor for changes Q1hr and PRN.
[2020-02-29 20:00] VITALS: BP 147/74
[2020-02-29 22:00] VITALS: BP 160/71
[2020-03-01] VITALS (8 sets, daily range): BP systolic 121–131; BP diastolic 56–63
[2020-03-01] MEDS: IPRATROPIUM BROM 0.5 MG/2.5ML INH SOL NEB SCH ×4 (00:06→18:39)
[2020-03-01] MEDS: ALBUTEROL SULF 2.5 MG/0.5ML(0.5%) NEB SOLN NEB SCH ×4 (00:06→18:39)
[2020-03-01] MEDS: PIPERACILLIN-TAZOB 2.25GM 50 ML IV SCH ×3 (01:51→18:28)
[2020-03-01] MEDS: hydrALAZINE HCL 25 MG TAB PO SCH ×3 (06:00→18:00)
[2020-03-01] MEDS: ACCU-CHEK COMFORT CURVE STRIP VI SCH ×4 (06:04→22:00)
[2020-03-01] MEDS: InsuLIN REG 1unit/0.01ml Soln (100units/ml) SC SCH ×4 (06:04→22:00)
--- NOTE | 2020-03-01 06:56 | NUR ---
Respiratory note: Scheduled medneb tx not administered, pt refused and wanting to sleep. No s/s of respiratory distress noted. Will return for next scheduled tx. Addendum: 03/01/20 at 1531 by SHAY BERMUDEZ, RT RT DISREGARD NOTE, NOTE WAS CHARTED ON WRONG PATIENT.
[2020-03-01] MEDS ORDERED: SODIUM CHL 0.9% 1000 ML BAG XX ONE (07:00)
--- NOTE | 2020-03-01 07:35 | NUR ---
Opening Shift Note Assumed care of patient, awake and alert. Sitter at bedside, and dialysis nurse at bedside. Patient mostly communicates in Wolof. Patient the lowest possible position with call light within reach. No S/S of distress/SOB or pain. Instructed on POC and to call for assist PRN, will continue to monitor for changes Q1hr and PRN.
--- NOTE | 2020-03-01 09:21 | NUR ---
Patient is currently receiving dialysis at this time. Will resume scheduled meds after dialysis.
[2020-03-01] MEDS: HEPARIN SODIUM (PORCINE) 5000 UNITS/ML 1ML VIAL SC SCH ×2 (10:00→22:37)
--- NOTE | 2020-03-01 10:56 | NUR ---
Nutrition Followup Note Wt 91 kg Pt receiving dialysis at time of rounds. Pt po intake is adequate aeb pt with 100% po intake 02/28 per RN doc. Will continue to monitor pt po intake. Est Energy needs: 2210-8070 kcals (20-23 kcal/kgBW), Est Protein needs: 90-99 gms/day (1.1-1.2 gm/kgBW). Will continue to monitor and reassess prn. Labs: BUn 26H, Creat 6.37H, Alb 2.4L BM: Pt had 2 BM on 02/28 per RN doc Skin: BS 16 mod risk, full details per RN WC doc. PES: Resolved: Pt diet advanced to pureed, pt with adequate oral intake 02/28 aeb 100% po intake 1) Increased nutrient needs r/t pt with no PO intake aeb pt sedated, intubated with mech vent, NPO 2) Obesity r/t energy intake in excess of energy needs aeb 153% IBW and BMI of 33.1 kg/m2 3) Altered nutrition lab values r/t current/chronic medical condition aeb elev RFTs, low GFR, hyperglycemia, hypocalcemia, hypoalbuminemia, hyponatremia, hypochloremia Comments Will continue to closely monitor pertinent labs, PO intake and skin status prn. Will followup in 3-5 days Rec: 1) Consider CCHO 60 gm renal std pureed diet. 2) refer to CDE on DC. 3) Continue current plan of care
--- NOTE | 2020-03-01 11:00 | NUR ---
WOUND CARE NOTE: IN TO SEE PATIENT PATIENT AT THIS TIME FOR SKIN INTEGRITY MONITORING. SINCE LAST VISIT, PATIENT HAS BEEN TRANSFERRED FROM ICU TO MED SURG/TELE ROOM . CURRENT VIVEK SCORE IS 16. PATIENT CONTINUES TO REST ON SPECIALTY AIR MATTRESS. PATIENT TURNED TO RIGHT SIDE SO TO VISUALIZE THE PATIENT'S SACRUM. NON BLANCHABLE REDNESS CONTINUES TO BE NOTED TO SACRUM, WITH A 4 X 3 PARTIAL THICKNESS STAGE 2 PRESSURE INJURY TO THE RIGHT SACRUM. APPLIED ZGUARD, OPTIFOAM GENTLE SACRAL DRSSING PER MD ORDER TO WOUND. LEFT FLANK HAS LINEAR SCAR NOTED, NO OPEN OR DRAINING AREAS NOTED. LEFT OPEN TO AIR. PATIENT CONTINUES TO HAVE A SMALL NON BLANCHABLE AREA NOTED TO RIGHT LATERAL FOOT. SKIN REMAINS INTACT, LEFT OPEN TO AIR. ALL WOUNDS PHOTOGRAPHED FOR REFERENCE. ALL WOUND STATS CAN BE FOUND WITHIN WOUND ASSESSMENT, LINKED TO THIS NOTE. RECOMMEND: CONTINUATION WITH ALL WOUND CARE ORDERS PREVIOUSLY PRESCRIBED BY MD. WOUND CARE TEAM WILL CONTINUE TO MONITOR. Addendum: 03/01/20 at 1646 by Sue Espinal RN Amended: Links added.
[2020-03-01] MEDS: PANTOPRAZOLE 40 MG/10 ML VIAL INJ IV SCH (11:24)
--- NOTE | 2020-03-01 12:00 | NUR ---
1200 Apresoline held, BP is 121/56
[2020-03-01] MEDS ORDERED: VANCOMYCIN 1GM/250ML 250 ML IV ONE (17:00)
--- NOTE | 2020-03-01 20:00 | NUR ---
Opening Shift Note Assumed care of patient, awake and alert. No S/S of distress/SOB or pain. Instructed on POC and to call for assist PRN, will continue to monitor for changes Q1hr and PRN.
[2020-03-01] MEDS ORDERED: HEPARIN SODIUM (PORCINE) 5000 UNITS/ML 1ML VIAL ONE (22:12)
[2020-03-02] VITALS (7 sets, daily range): BP systolic 122–162; BP diastolic 6–73
--- NOTE | 2020-03-02 | NUR ---
IV removal Right hand noted with swelling and leakage at IV site. IV dc'd.
--- NOTE | 2020-03-02 00:10 | NUR ---
IV insertion IV access obtained, via clean sterile technique by inserting 22 gauge catheter at after 1 attempt(s). IV secured properly. No trauma to site. Patient tolerated procedure well.
[2020-03-02] MEDS: IPRATROPIUM BROM 0.5 MG/2.5ML INH SOL NEB SCH ×4 (00:51→18:33)
[2020-03-02] MEDS: ALBUTEROL SULF 2.5 MG/0.5ML(0.5%) NEB SOLN NEB SCH ×4 (00:52→18:33)
[2020-03-02] MEDS: PIPERACILLIN-TAZOB 2.25GM 50 ML IV SCH ×3 (02:43→18:48)
[2020-03-02] MEDS: hydrALAZINE HCL 25 MG TAB PO SCH ×4 (06:45→18:47)
[2020-03-02] MEDS: InsuLIN REG 1unit/0.01ml Soln (100units/ml) SC SCH ×4 (07:00→22:00)
--- NOTE | 2020-03-02 07:00 | NUR ---
Patient resting comfortably no distress noted.
[2020-03-02] MEDS: ACCU-CHEK COMFORT CURVE STRIP VI SCH ×4 (07:17→22:54)
--- NOTE | 2020-03-02 08:05 | NUR ---
OPENING SHIFT NOTE Assumed care of patient. Patient is awake and alert. No S/S of distress/SOB. Instructed on POC and to call for assist PRN. Bed with specialty mattress is in low and locked position. Call light within reach. Will continue to monitor for changes Q1hr and PRN. Sitter near patient door.
--- NOTE | 2020-03-02 09:04 | NUR ---
OPTIFOAM ON SACRUM CHANGED
[2020-03-02] MEDS ORDERED: HEPARIN SODIUM (PORCINE) 5000 UNITS/ML 1ML VIAL ONE ×2 (10:38→10:39)
[2020-03-02] MEDS: HEPARIN SODIUM (PORCINE) 5000 UNITS/ML 1ML VIAL SC SCH (10:57)
[2020-03-02] MEDS: PANTOPRAZOLE 40 MG/10 ML VIAL INJ IV SCH (10:58)
[2020-03-03] MEDS: ALBUTEROL SULF 2.5 MG/0.5ML(0.5%) NEB SOLN NEB SCH ×4 (00:03→18:56)
[2020-03-03] MEDS: IPRATROPIUM BROM 0.5 MG/2.5ML INH SOL NEB SCH ×4 (00:03→18:56)
[2020-03-03] MEDS: HEPARIN SODIUM (PORCINE) 5000 UNITS/ML 1ML VIAL SC SCH ×3 (00:32→22:01)
[2020-03-03] MEDS: hydrALAZINE HCL 25 MG TAB PO SCH ×4 (00:33→18:26)
[2020-03-03] MEDS: PIPERACILLIN-TAZOB 2.25GM 50 ML IV SCH ×3 (02:30→18:26)
[2020-03-03 05:45] VITALS: BP 153/78
[2020-03-03] MEDS: InsuLIN REG 1unit/0.01ml Soln (100units/ml) SC SCH ×3 (06:17→22:00)
[2020-03-03] MEDS: ACCU-CHEK COMFORT CURVE STRIP VI SCH ×4 (06:17→22:02)
--- NOTE | 2020-03-03 07:25 | NUR ---
Opening Shift Note Assumed care of patient, awake and alert and oriented x4. No S/S of distress/SOB or pain reported at this time. Instructed on POC and to call for assist PRN, call light within reach, alayna continue to monitor for changes Q1hr and PRN.
--- NOTE | 2020-03-03 07:30 | NUR ---
FALL PRECAUTIONS PT ABLE TO DEMONSTRATE HOW TO USE CALL LIGHT, NON SLIP SOCKS ON, BED ALARM ON, 2 SIDE RAILS UP, AND BED POSITIONED LOW, CONT CARE
[2020-03-03 08:51] VITALS: BP 147/62
--- NOTE | 2020-03-03 09:08 | NUR ---
Weekend cutting and boning supervisor-I received a page from nurse Jane asking me to call [facility] (per their request). I called [facility] and spoke with Florencia, she asked about the transfer back agreement. I let her know that what was faxed to us on Tuesday was a letter of agreement, not a transfer back agreement. She will fax the appropriate form.
[2020-03-03 09:32] LABS: Eosinophils # (auto) 0.2 10 ^3/uL (0-0.8); Monocytes # (auto) 0.6 10 ^3/uL (0-1.3); Red Cell Distribution Width 15.2 % (11.8-14.3)
[2020-03-03 09:34] LABS: Basophils # (auto) 0 10 ^3/uL (0-0.2); Basophils % (auto) 0.9 % (0.0-2.0); Eosinophils % (auto) 3.4 % (0.0-7.0); Hematocrit 32.7 % (41.0-53.0); Hemoglobin 10.8 g/dL (13.5-17.5); Lymphocytes # (auto) 0.5 10 ^3/uL (0.4-5.4); Lymphocytes % (auto) 11.3 % (10.0-50.0); Mean Corpuscular Hemoglobin 34.8 pg (28.0-32.0); Mean Corpuscular Hgb Conc. 33.2 g/dL (32.0-36.0); Mean Corpuscular Volume 104.9 fL (80.0-100.0); Monocytes % (auto) 13.2 % (0.0-12.0); Neutrophils # (auto) 3.4 10 ^3/uL (1.6-8.6); Neutrophils % (auto) 71.2 % (37.0-80.0); Nucleated Red Blood Cells % 0.2 %; Platelet Count (auto) 159 10^3/uL (140-450); Red Blood Cells 3.11 10^6/uL (4.5-5.90); White Blood Cell 4.8 10^3/uL (4.4-10.8)
[2020-03-03 09:53] LABS: BUN/Creatinine Ratio 4.1; Calcium 8.7 mg/dL (8.5-10.1); Potassium 4.5 mmol/L (3.5-5.1)
[2020-03-03] MEDS: PANTOPRAZOLE 40 MG/10 ML VIAL INJ IV SCH (10:21)
[2020-03-03 12:30] VITALS: BP 140/69
--- NOTE | 2020-03-03 12:40 | NUR ---
ACTIVITY PT OOB TO BSC, MOD ASSIST, LARGE SOFT BM NOTED, ASSISTED BACK TO BED, PULLED UP IN BED, REPOSITIONED, CALL LIGHT WITHIN REACH, CONT CARE
[2020-03-03 17:11] VITALS: BP 162/74
--- NOTE | 2020-03-03 19:18 | NUR ---
OPENING SHIFT NOTE ASSUMED CARE OF PATIENT. PATIENT IS ASLEEP AT THIS TIME. NO S/S OF RESPIRATORY DISTRESS. RESPIRATIONS ARE REGULAR AND NON-LABORED. ON 2 LPM VIA NC. BED IS IN LOWEST POSITION WITH SIDE RAILS RAISED X 2, BED WHEELS LOCKED, AND CALL LIGHT IS WITHIN REACH. RIVERS IS PATENT AND PLACED ON BED FRAME. PATIENT WILL BE INSTRUCTED ON POC AND CALL FOR ASSISTANCE NEEDED. WILL CONTINUE TO MONITOR 1QH AND/OR PRN.
[2020-03-03 20:00] VITALS: BP 151/67
[2020-03-03] MEDS ORDERED: HEPARIN SODIUM (PORCINE) 5000 UNITS/ML 1ML VIAL ONE (21:20)
[2020-03-03 22:00] VITALS: BP 151/67
[2020-03-04] VITALS (8 sets, daily range): BP systolic 114–149; BP diastolic 58–66
[2020-03-04] MEDS: IPRATROPIUM BROM 0.5 MG/2.5ML INH SOL NEB SCH ×4 (00:15→19:04)
[2020-03-04] MEDS: ALBUTEROL SULF 2.5 MG/0.5ML(0.5%) NEB SOLN NEB SCH ×4 (00:15→19:04)
[2020-03-04] MEDS: hydrALAZINE HCL 25 MG TAB PO SCH ×4 (00:29→18:04)
[2020-03-04] MEDS: PIPERACILLIN-TAZOB 2.25GM 50 ML IV SCH ×3 (01:58→18:04)
--- NOTE | 2020-03-04 03:40 | NUR ---
Dressing changed Optifoam dressing changed on sacrum. Area cleansed with water and soap, patted dry, ZGuard cream applied on surrounding tissue. Patient tolerated well.
--- NOTE | 2020-03-04 06:38 | NUR ---
Respiratory note: PT FOUND ON RA, SATS 75-79%. PLACED BACK ON N/C, INCREASED FROM 2LPM TO 3LPM, SATS NOW AT 95%. TX GIVEN WITHOUT INCIDENCE, NO DISTRESS NOTED. PT EDUCATED ON IMPORTANCE OF KEEPING O2 ON.
[2020-03-04] MEDS: ACCU-CHEK COMFORT CURVE STRIP VI SCH ×4 (06:43→21:52)
[2020-03-04] MEDS: InsuLIN REG 1unit/0.01ml Soln (100units/ml) SC SCH ×4 (06:43→21:53)
[2020-03-04] MEDS ORDERED: SODIUM CHL 0.9% 1000 ML BAG XX ONE ×2 (07:00→11:30)
--- NOTE | 2020-03-04 07:35 | NUR ---
Opening Shift Note Assumed care of patient, awake and alert and oriented x4. No S/S of distress/SOB or pain reported at this time. Instructed on POC and to call for assist PRN, call light within reach, Patient able tp demonstrate how to call for help using call light, dialysis cath to left upper chest cdi, no swelling, redness or pain reported, IV 22g to right upper chest patent and benign, 3 lumen cath to right groin, no redness, swelling or drainage noted, will continue to monitor for changes Q1hr and PRN.
[2020-03-04 07:47] LABS: % Iron Saturation 38.1 % (20-55)
--- NOTE | 2020-03-04 11:20 | NUR ---
DIALYSIS NURSE AT BEDSIDE FOR TX
--- NOTE | 2020-03-04 13:13 | NUR ---
DR Betsy FREEMAN AT BEDSIDE NEW ORDERS RECEIVED TO DEXTER RIVERS MD AWARE PT HAS LOW UO, 20-30ML QSHIFT, SPOKE WITH STATES PT HAS LOW TO NO UO AT TIMES, CONT CARE
--- NOTE | 2020-03-04 14:00 | NUR ---
DIALYSIS COMPLETE 2.5L REMOVED, PT ASYMPTOMATIC, CURRENTLY SLEEPING, HOB>30, BREATHING EVEN AND UNLABORED, ON 3L VIA NC, CALL LIGHT WITHIN REACH, BED ALARM ON
--- NOTE | 2020-03-04 14:23 | NUR ---
Nutrition Followup Note Wt 91 kg Pt was sleeping at time of rounds. Pt opened eyes when trying to wake him, but did not respond. Pt it awaiting transfer to [facility]. Pt with inadequate oral intake x2 days aeb pt with an avg of 38% po intake per RN doc. Est Energy needs: 5534-8803 kcals (20-23 kcal/kgBW), Est Protein needs: 90-99 gms/day (1.1-1.2 gm/kgBW). Will continue to monitor and reassess prn. Labs: BUN 25H, Creat 6.12H, Alb 2.4L BM: Pt had 2 BM on 03/04 per RN doc Skin: BS 16 mod risk, full details per RN WC doc. PES: Resolved: Pt diet advanced to pureed, pt with adequate oral intake 02/28 aeb 100% po intake 1) Increased nutrient needs r/t pt with no PO intake aeb pt sedated, intubated with mech vent, NPO 2) Obesity r/t energy intake in excess of energy needs aeb 153% IBW and BMI of 33.1 kg/m2 3) Altered nutrition lab values r/t current/chronic medical condition aeb elev RFTs, low GFR, hyperglycemia, hypocalcemia, hypoalbuminemia, hyponatremia, hypochloremia Comments Will continue to closely monitor pertinent labs, PO intake and skin status prn. Will followup in 3-5 days Rec: 1) Consider CCHO 60 gm renal std pureed diet. 2) refer to CDE on DC. 3) Continue current plan of care
--- NOTE | 2020-03-04 15:40 | NUR ---
Bañuelos catheter dc'd Order to discontinue bañuelos catheter. Bañuelos dc'd with clean technique following deflation of balloon. Patient tolerated well with no complaints of pain. Continue care.
--- NOTE | 2020-03-04 16:15 | NUR ---
SPOKE WITH IDANIA RODRIGUEZ STATES SHE FAXED FORM TO [facility] IS ON WILL CALL AND PT CAN GET A BED AT ANY TIME, CALLED SPOUSE AND UPDATED HER ON POC, CONT CARE
--- NOTE | 2020-03-04 16:25 | NUR ---
I faxed transfer back agreement to [facility].
[2020-03-04] MEDS: PANTOPRAZOLE 40 MG/10 ML VIAL INJ IV SCH (16:39)
[2020-03-04] MEDS: HEPARIN SODIUM (PORCINE) 5000 UNITS/ML 1ML VIAL SC SCH ×2 (17:56→23:36)
--- NOTE | 2020-03-04 19:10 | NUR ---
OPENING SHIFT NOTE ASSUMED CARE OF PATIENT. PATIENT IS ASLEEP AT THIS TIME. NO S/S OF RESPIRATORY DISTRESS. RESPIRATIONS ARE REGULAR AND NON-LABORED. ON 2 LPM VIA NC. BED IS IN LOWEST POSITION WITH SIDE RAILS RAISED X 2, BED WHEELS LOCKED, AND CALL LIGHT IS WITHIN REACH. PATIENT WILL BE INSTRUCTED ON POC AND CALL FOR ASSISTANCE NEEDED. WILL CONTINUE TO MONITOR 1QH AND/OR PRN.
[2020-03-04] MEDS ORDERED: EPOETIN ALFA 4,000 UNIT/ML VL SC ONE (21:00)
--- NOTE | 2020-03-04 23:15 | NUR ---
Bed assigned Got telephone call from [facility] transfer center. Spoke to [facility]. Bed 452A assigned to patient. Accepting physician Dr. Julian Palafox. Patient can be transferred tomorrow anytime after 0700. Phone number to reach RN and give the report is [phone].
[2020-03-05] MEDS: IPRATROPIUM BROM 0.5 MG/2.5ML INH SOL NEB SCH ×2 (00:26→07:13)
[2020-03-05] MEDS: ALBUTEROL SULF 2.5 MG/0.5ML(0.5%) NEB SOLN NEB SCH ×2 (00:26→07:12)
[2020-03-05] MEDS: hydrALAZINE HCL 25 MG TAB PO SCH ×2 (01:23→05:58)
[2020-03-05] MEDS: PIPERACILLIN-TAZOB 2.25GM 50 ML IV SCH ×2 (02:18→10:00)
[2020-03-05 05:00] VITALS: BP 135/67
--- NOTE | 2020-03-05 05:45 | NUR ---
PICC line PICC line catheter was found on the floor in patient's room next to his bed. Catheter is fully intact. Patient is awake and alert. Responds to questions clearly, does not report any pain or SOB. There is no bleeding from insertion site. Pressure with gas applied to the site. Patient does not demonstrate any signs and/or symptoms of respiratory distress. Respirations is non-labored, no accessory muscles use. Patient on 2 LPM NC with SPO2 99%. Earlier in the shift he pulled accidently his peripheral IV. Catheter was fully intact. Pressure applied. Will continue to monitor Q1H or/and PRN.
[2020-03-05] MEDS: ACCU-CHEK COMFORT CURVE STRIP VI SCH ×2 (06:37→11:30)
[2020-03-05] MEDS: InsuLIN REG 1unit/0.01ml Soln (100units/ml) SC SCH ×2 (06:37→11:30)
--- NOTE | 2020-03-05 08:21 | NUR ---
I called [facility] and spoke with Riddhi-they will be here 9am to transport to [facility]-I made nurse Kaci aware.
[2020-03-05 09:00] VITALS: BP 108/55
[2020-03-05] MEDS: PANTOPRAZOLE 40 MG/10 ML VIAL INJ IV SCH (10:00)
[2020-03-05] MEDS: HEPARIN SODIUM (PORCINE) 5000 UNITS/ML 1ML VIAL SC SCH (10:00)
--- NOTE | 2020-03-05 10:53 | NUR ---
Patient to be transferred to [facility], bed number 452-A, called and gave report to receiving RN at [phone]. EMR scheduled to brass pickler patient in one hour, 1200.
--- NOTE | 2020-03-05 11:54 | NUR ---
[facility] transportation transporting patient to [facility] via gurney along with all personal belongings; no distress noted at time of departure.
== END 2020-03-05 12:15 | disposition short-term general hospital (02) | DRG 130 ==
LOC: ER 08:58 → EDBD 08:58 → ICU WEST 08:59 → WEST WING 02-21 20:15 → TELE-WESTW 02-22 06:28
PROVIDERS: ADMIT Specialist; ATTEND Specialist
PROC: 06HY33Z Insertion of Infusion Device into Lower Vein, Percutaneous Approach (ICD-10-PCS; principal; 2020-02-14)
PROC: 5A1955Z Respiratory Ventilation, Greater than 96 Consecutive Hours (ICD-10-PCS; 2020-02-14)
PROC: 4A023N8 Measurement of Cardiac Sampling and Pressure, Bilateral, Percutaneous Approach (ICD-10-PCS; 2020-02-14)
PROC: 0T9B70Z Drainage of Bladder with Drainage Device, Via Natural or Artificial Opening (ICD-10-PCS; 2020-02-14)
PROC: B2111ZZ Fluoroscopy of Multiple Coronary Arteries using Low Osmolar Contrast (ICD-10-PCS; 2020-02-14)
PROC: B2151ZZ Fluoroscopy of Left Heart using Low Osmolar Contrast (ICD-10-PCS; 2020-02-14)
PROC: B41J1ZZ Fluoroscopy of Other Lower Arteries using Low Osmolar Contrast (ICD-10-PCS; 2020-02-14)
PROC: 0W993ZZ Drainage of Right Pleural Cavity, Percutaneous Approach (ICD-10-PCS; 2020-02-16)
PROC: 5A1D70Z Performance of Urinary Filtration, Intermittent, Less than 6 Hours Per Day (ICD-10-PCS; 2020-02-16)
PROC: 5A1D70Z Performance of Urinary Filtration, Intermittent, Less than 6 Hours Per Day (ICD-10-PCS; 2020-02-19)
PROC: 5A1D70Z Performance of Urinary Filtration, Intermittent, Less than 6 Hours Per Day (ICD-10-PCS; 2020-02-21)
PROC: 5A1D70Z Performance of Urinary Filtration, Intermittent, Less than 6 Hours Per Day (ICD-10-PCS; 2020-02-23)
PROC: 5A1D70Z Performance of Urinary Filtration, Intermittent, Less than 6 Hours Per Day (ICD-10-PCS; 2020-02-24)
PROC: 5A1D70Z Performance of Urinary Filtration, Intermittent, Less than 6 Hours Per Day (ICD-10-PCS; 2020-02-28)
PROC: 5A1D70Z Performance of Urinary Filtration, Intermittent, Less than 6 Hours Per Day (ICD-10-PCS; 2020-03-01)
PROC: 5A1D70Z Performance of Urinary Filtration, Intermittent, Less than 6 Hours Per Day (ICD-10-PCS; 2020-03-04)
DX: J96.01 Acute respiratory failure with hypoxia (principal); J69.0 Pneumonitis due to inhalation of food and vomit; I13.2 Hypertensive heart and chronic kidney disease with heart failure and with stage 5 chronic kidney disease, or end stage renal disease; I21.4 Non-ST elevation (NSTEMI) myocardial infarction; I46.9 Cardiac arrest, cause unspecified; G93.1 Anoxic brain damage, not elsewhere classified; J96.02 Acute respiratory failure with hypercapnia; J90 Pleural effusion, not elsewhere classified; I42.9 Cardiomyopathy, unspecified; E66.01 Morbid (severe) obesity due to excess calories; E87.3 Alkalosis; N18.6 End stage renal disease; Z99.2 Dependence on renal dialysis; I95.9 Hypotension, unspecified; I25.10 Atherosclerotic heart disease of native coronary artery without angina pectoris; E21.3 Hyperparathyroidism, unspecified; E11.22 Type 2 diabetes mellitus with diabetic chronic kidney disease; E11.649 Type 2 diabetes mellitus with hypoglycemia without coma; E11.65 Type 2 diabetes mellitus with hyperglycemia; I25.2 Old myocardial infarction; I49.01 Ventricular fibrillation; J98.11 Atelectasis; Z79.899 Other long term (current) drug therapy; Z79.02 Long term (current) use of antithrombotics/antiplatelets; F41.9 Anxiety disorder, unspecified; Z79.84 Long term (current) use of oral hypoglycemic drugs; Z68.31 Body mass index [BMI] 31.0-31.9, adult; I50.43 Acute on chronic combined systolic (congestive) and diastolic (congestive) heart failure; D63.1 Anemia in chronic kidney disease
CPT/HCPCS: 10022; 36415; 36556; 36600; 51702; 70450; 71045; 74176; 76937; 80048; 80053; 80076; 80202; 82310; 82533; 82550; 82728; 82805; 82962; 83540; 83550; 83605; 83690; 83735; 83874; 83880; 83986; 84100; 84484; 85014; 85018; 85025; 85610; 85730; 86850; 86900; 86901; 87040; 87070; 87077; 87081; 87186; 87205; 89051; 90935; 92610; 93005; 94002; 94003; 94640; 95819; 96365; 96366; 96368; 99152; 99153; 99291; A4618; C1751; C9113; G0378; J0153; J1642; J1815; J2250; J2543; J3480; J7060; Q9967

== ENCOUNTER 2020-03-08 12:17 | Inpatient (IN) | payer MEDICAID ==
[~2020-03-08] VITALS: Ht 162.6 cm; Wt 77.6 kg
[~2020-03-08 12:17] MED LIST changes: -ACET-1304 PO; -CARV12.544 PO; -CETI10TA80 PO; +DIGO0.12 PO; -DIPH25CA6 PO; -DOCU100T15 PO; -EPIN0.3I24 IJ; -EPINEPHrine HCL 1 MG/10 ML SYRG IV ONE; -FAMO-12 PO; -FURO40TA4 PO; -HYDR10TA26 PO; -ISOS10TA2 PO; -LIDOCAINE HCL 100 MG/5ML (2%) SYRG INJ IV ONE; -NIFE1TAB31 PO; -SODIUM BICARBONATE 8.4% INJ 50ML SYRINGE IV ONE
[2020-03-09] MEDS ORDERED: hydrOXYzine 25 MG TAB or CAP PO PRN (15:45)
[2020-03-09] MEDS ORDERED: ZOLPIDEM TARTRATE 5 MG TAB PO PRN (15:45)
[2020-03-09] MEDS ORDERED: traZODone HCL 50 MG TAB PO PRN (15:45)
[2020-03-09] MEDS ORDERED: guaiFENesin 200 MG/10 ML UD PO PRN (15:45)
[2020-03-09] MEDS ORDERED: DEXTROSE (50%) 50ML SYRG IV PRN (15:45)
[2020-03-09] MEDS ORDERED: diphenhdrAMINE HCL 25 MG CAP PO PRN (15:45)
[2020-03-09] MEDS ORDERED: NITROGLYCERIN 0.4 MG SL TAB SL PRN (15:45)
[2020-03-09] MEDS ORDERED: HYDROcodone-ACET 10/325MG TAB PO PRN (15:45)
[2020-03-09] MEDS ORDERED: BISACODYL 10 MG RECT SUPP PR PRN (15:45)
[2020-03-09] MEDS ORDERED: ONDANSETRON HCL 4 MG/2 ML VIAL IV PRN (15:45)
[2020-03-09] MEDS ORDERED: SIMETHICONE 80 MG CHEWABLE TABLET PO PRN (15:45)
[2020-03-09] MEDS ORDERED: SENNA 8.6 MG TAB PO PRN (15:45)
[2020-03-09] MEDS ORDERED: traMADol HCL 50 MG TAB PO PRN (15:45)
[2020-03-09] MEDS ORDERED: THROAT LOZENGES(CEPASTAT) MT PRN (15:45)
[2020-03-09] MEDS ORDERED: ACETAMINOPHEN 325 MG TAB PO PRN (15:45)
[2020-03-09] MEDS ORDERED: MORPHINE SULF INJ 2 MG/ML SYRINGE 1ML IV PRN (15:45)
[2020-03-09] MEDS ORDERED: LACTULOSE 20Gm/30ML SOLN PO PRN (15:45)
[2020-03-09 17:00] VITALS: BP 145/73
[2020-03-09] MEDS: InsuLIN REG 1unit/0.01ml Soln (100units/ml) SC SCH (17:00)
[2020-03-09] MEDS: ACCU-CHEK COMFORT CURVE STRIP VI SCH ×2 (17:07→21:34)
[2020-03-09 17:17] VITALS: BP 145/73
[2020-03-09] MEDS: SEVELAMER 800 MG TAB PO SCH (18:29)
[2020-03-09] MEDS: CALCIUM ACETATE 667 MG CAP PO SCH (18:29)
[2020-03-09 20:00] VITALS: BP 161/56
[2020-03-09] MEDS: GABAPENTIN 100 MG CAP PO SCH (21:34)
[2020-03-09] MEDS: hydrALAZINE HCL 25 MG TAB PO PRN (21:35)
[2020-03-09] MEDS ORDERED: InsuLIN REG 1unit/0.01ml Soln (100units/ml) SC SCH (22:00)
[2020-03-09] MEDS ORDERED: ATORVASTATIN 20 MG TAB PO SCH (22:00)
[2020-03-09 22:50] VITALS: BP 161/56
[2020-03-10] MEDS: hydrALAZINE HCL 25 MG TAB PO PRN (04:55)
[2020-03-10 05:00] VITALS: BP 188/76
[2020-03-10 05:37] LABS: Basophils # (auto) 0.1 10 ^3/uL (0-0.2); Eosinophils # (auto) 0.1 10 ^3/uL (0-0.8); Eosinophils % (auto) 1.9 % (0.0-7.0); Lymphocytes # (auto) 0.6 10 ^3/uL (0.4-5.4); Mean Corpuscular Volume 106.7 fL (80.0-100.0); Monocytes # (auto) 0.6 10 ^3/uL (0-1.3); Platelet Count (auto) 246 10^3/uL (140-450); White Blood Cell 4.8 10^3/uL (4.4-10.8)
[2020-03-10 05:39] LABS: Basophils % (auto) 1.7 % (0.0-2.0); Hematocrit 33.6 % (41.0-53.0); Lymphocytes % (auto) 11.9 % (10.0-50.0); Mean Corpuscular Hemoglobin 34.9 pg (28.0-32.0); Mean Corpuscular Hgb Conc. 32.7 g/dL (32.0-36.0); Monocytes % (auto) 12.6 % (0.0-12.0); Neutrophils # (auto) 3.5 10 ^3/uL (1.6-8.6); Neutrophils % (auto) 71.9 % (37.0-80.0); Nucleated Red Blood Cells % 0.2 %; Red Blood Cells 3.15 10^6/uL (4.5-5.90); Red Cell Distribution Width 14.9 % (11.8-14.3)
[2020-03-10 05:59] LABS: Potassium 5.2 mmol/L (3.5-5.1)
[2020-03-10 06:04] LABS: Calcium 8.9 mg/dL (8.5-10.1)
[2020-03-10] MEDS: InsuLIN REG 1unit/0.01ml Soln (100units/ml) SC SCH ×3 (06:40→17:00)
[2020-03-10] MEDS: ACCU-CHEK COMFORT CURVE STRIP VI SCH ×3 (06:40→17:00)
[2020-03-10 08:00] VITALS: BP 188/76
[2020-03-10] MEDS: SEVELAMER 800 MG TAB PO SCH ×3 (08:53→18:00)
[2020-03-10] MEDS: CALCIUM ACETATE 667 MG CAP PO SCH ×3 (08:53→18:00)
[2020-03-10 09:00] VITALS: BP 147/64
[2020-03-10] MEDS: GABAPENTIN 100 MG CAP PO SCH (09:34)
[2020-03-10] MEDS ORDERED: PANTOPRAZOLE 40 MG TAB PO SCH (10:00)
[2020-03-10] MEDS ORDERED: AMIODARONE HCL 200 MG TAB PO SCH (10:00)
[2020-03-10] MEDS ORDERED: DIGOXIN 0.125 MG TAB PO SCH (10:00)
[2020-03-10 13:00] VITALS: BP 131/67
[2020-03-10 16:43] VITALS: BP 188/76
[2020-03-10 17:00] VITALS: BP 147/65
== END 2020-03-10 18:40 | disposition home health service (06) | DRG 198 ==
LOC: TELE-WESTW 03-09 15:20
PROVIDERS: ADMIT Specialist; ATTEND Specialist
DX: I25.10 Atherosclerotic heart disease of native coronary artery without angina pectoris (principal); I13.2 Hypertensive heart and chronic kidney disease with heart failure and with stage 5 chronic kidney disease, or end stage renal disease; L89.152 Pressure ulcer of sacral region, stage 2; E11.22 Type 2 diabetes mellitus with diabetic chronic kidney disease; N18.6 End stage renal disease; I50.20 Unspecified systolic (congestive) heart failure; E66.01 Morbid (severe) obesity due to excess calories; Z99.2 Dependence on renal dialysis; Z95.810 Presence of automatic (implantable) cardiac defibrillator; Z79.02 Long term (current) use of antithrombotics/antiplatelets; Z68.29 Body mass index [BMI] 29.0-29.9, adult
CPT/HCPCS: 36415; 80048; 82962; 85025; 87081; G0378

== ENCOUNTER → 2020-03-11 | Emergency (ER) | payer MEDICAID ==
[~2020-03-11] VITALS: Ht 157.5 cm; Wt 87.1 kg
[~2020-03-11] MED LIST changes: +SODIUM BICARBONATE 8.4 % INJ 50ML VIAL IV ONE
[2020-03-11 22:51] VITALS: BP 0/0
== END | disposition home or self-care (01) ==
LOC: EDUNIT# 22:34 → EDBD 22:43 → ER 22:43
DX: I46.9 Cardiac arrest, cause unspecified (principal); I12.0 Hypertensive chronic kidney disease with stage 5 chronic kidney disease or end stage renal disease; E11.22 Type 2 diabetes mellitus with diabetic chronic kidney disease; N18.6 End stage renal disease; I25.2 Old myocardial infarction
CPT/HCPCS: 31500; 92950